=== PATIENT | male | born 1950 | race Caucasian/White ===

== ENCOUNTER → 2016-12-27 | Outpatient (CLI) | payer OTHER ==
[~2016-12-27] MED LIST: ASPI81TA28 PO; CLOP1TAB15 PO; COLC0.6T54 PO; ENAL5TAB83 PO; LPT40 PO; SIMV20TA2 PO
[2016-12-27 13:42] LABS: ALT/SGPT 29 U/L (12-78); BLOOD UREA NITROGEN 17 mg/dl (7-18); BUN/CREATININE RATIO 19.8 (10-20); CALCIUM 9.3 mg/dl (8.5-10.1); CARBON DIOXIDE 28 mmol/L (21-32); CHLORIDE 105 mmol/L (98-107); CHOLESTEROL 132 mg/dl (0-200); CREATININE 0.85 mg/dl (0.60-1.40); GLUCOSE 92 mg/dl (70-99); POTASSIUM 4.1 mmol/L (3.5-5.1); SODIUM 142 mmol/L (136-145); TRIGLYCERIDES 109 mg/dl (0-150); VERY LOW DENSITY LIPOPROT CALC 22 mg/dl
[2016-12-27 13:49] LABS: CHOLESTEROL/HDL RATIO 2.1; HDL CHOLESTEROL 63 mg/dl; PROSTATE SPECIFIC ANTIGEN 0.272 ng/ml (0.000-4.000); URIC ACID 6.7 mg/dl (2.6-7.2)
== END | disposition home or self-care (01) ==
LOC: C.LABMFLN 12:15
PROVIDERS: ATTEND Family Medicine
DX: M77.10 Lateral epicondylitis, unspecified elbow (principal); E78.5 Hyperlipidemia, unspecified; Z12.5 Encounter for screening for malignant neoplasm of prostate

== ENCOUNTER 2017-01-04 00:56 | Emergency (ER) | payer OTHER ==
[~2017-01-04] VITALS: Ht 182.9 cm; Wt 110.0 kg
[~2017-01-04 00:56] MED LIST changes: -COLC0.6T54 PO; -LPT40 PO
[2017-01-04 01:10] VITALS: Ht 182.9 cm; Wt 110.0 kg
--- NOTE | 2017-01-04 01:13 | EMERGENCY ROOM VISIT NOTE ---
History Report prepared by Rosiibkavon: Elijah Mahmood Under the Supervision of: Conchis WhiteO. First contact with patient: 01:04 Chief Complaint: CARDIAC ASSESSMENT Stated Complaint: PALPATATIONS,NOT FEELING WELL,PAIN IN LFT SHOULDER History of Present Illness The patient is a 66 year old male who presents to the Emergency Room with complaints of intermittent chest "pressure" beginning two weeks ago. He states that the pain is occasionally present in his left shoulder. He states he had an episode of confusion today as well. The patient states that he took aspirin following the episode which improved his symptoms. He also complains of shortness of breath. He denies any dizziness. The patient has a history of a heart attack occurring two years ago and states that his current symptoms feel similar. He has two cardiac stents in place. Source of History: patient Onset: two weeks ago Position: chest Quality: pressure Timing: intermittent Modifying Factors (Relieving): other (aspirin) Associated Symptoms: + SOB Note: The patient denies any dizziness. He also complains of occasional pain in his left shoulder. Review of Systems See HPI for pertinent positives and negatives. A total of ten systems were reviewed and were otherwise negative. Past Medical & Surgical Medical Problems: (1) CAD (coronary artery disease) (2) Gout (3) NSTEMI (non-ST elevated myocardial infarction) Surgical Problems: (1) No significant past surgical history (2) Stented coronary artery Family History No pertinent family history stated. Social History Smoking Status: Former Smoker Alcohol Use: occasionally Marital Status: Occupation Status: employed Current/Historical Medications Scheduled Atorvastatin (Atorvastatin Calcium), 40 MG PO DAILY Clopidogrel (Plavix), 75 MG PO QAM Colchicine (Colchicine), 0.6 MG PO BID Allergies Coded Allergies: No Known Allergies (Unverified , 01/04/17) Physical Exam Vital Signs Date Time Temp Pulse Resp B/P Pulse Ox O2 Delivery O2 Flow Rate FiO2 01/04/17 04:00 59 16 140/95 95 Room Air 01/04/17 03:00 63 15 158/95 95 Room Air 01/04/17 01:45 95 Room Air 01/04/17 01:30 74 21 134/86 94 Room Air 01/04/17 01:14 72 01/04/17 01:14 96 Room Air 01/04/17 01:10 74 15 178/114 97 Room Air Physical Exam GENERAL: Awake, alert, well-appearing, in no distress HENT: Normocephalic, atraumatic. Oropharynx unremarkable. EYES: Normal conjunctiva. Sclera non-icteric. NECK: Supple. No nuchal rigidity. FROM. No JVD. RESPIRATORY: Clear to auscultation. CARDIAC: Regular rate, normal rhythm. Extremities warm and well perfused. Pulses equal. ABDOMEN: Soft, non-distended. No tenderness to palpation. No rebound or guarding. No masses. RECTAL: Deferred. MUSCULOSKELETAL: Chest examination reveals no tenderness. The back is symmetrical on inspection without obvious abnormality. There is no CVA tenderness to palpation. No joint edema. LOWER EXTREMITIES: Calves are equal size bilaterally and non-tender. No edema. No discoloration. NEURO: Normal sensorium. No sensory or motor deficits noted. SKIN: No rash or jaundice noted. Medical Decision & Procedures ER Provider Diagnostic Interpretation: One View Chest X-ray interpreted by me: Negative for infiltrate. Normal mediastinum. No pneumothorax. Laboratory Results 01/04/17 01:20 Red Blood Count 4.72, Mean Corpuscular Volume 87.9, Mean Corpuscular Hemoglobin 30.9, Mean Corpuscular Hemoglobin Concent 35.2, Mean Platelet Volume 9.3, Neutrophils (%) (Auto) 47.2, Lymphocytes (%) (Auto) 38.9, Monocytes (%) (Auto) 10.2, Eosinophils (%) (Auto) 3.4, Basophils (%) (Auto) 0.1, Neutrophils # (Auto ) 4.19, Lymphocytes # (Auto) 3.46, Monocytes # (Auto) 0.91, Eosinophils # (Auto ) 0.30, Basophils # (Auto) 0.01 01/04/17 01:20 Test 01/04/17 01:20 01/04/17 03:32 White Blood Count 8.89 K/uL (4.8-10.8) Red Blood Count 4.72 M/uL (4.7-6.1) Hemoglobin 14.6 g/dL (14.0-18.0) Hematocrit 41.5 % (42-52) Mean Corpuscular Volume 87.9 fL (80-100) Mean Corpuscular Hemoglobin 30.9 pg (25-34) Mean Corpuscular Hemoglobin Concent 35.2 g/dl (32-36) Platelet Count 292 K/uL (130-400) Mean Platelet Volume 9.3 fL (7.4-10.4) Neutrophils (%) (Auto) 47.2 % Lymphocytes (%) (Auto) 38.9 % Monocytes (%) (Auto) 10.2 % Eosinophils (%) (Auto) 3.4 % Basophils (%) (Auto) 0.1 % Neutrophils # (Auto) 4.19 K/uL (1.4-6.5) Lymphocytes # (Auto) 3.46 K/uL (1.2-3.4) Monocytes # (Auto) 0.91 K/uL (0.11-0.59) Eosinophils # (Auto) 0.30 K/uL (0-0.5) Basophils # (Auto) 0.01 K/uL (0-0.2) RDW Standard Deviation 41.0 fL (36.4-46.3) RDW Coefficient of Variation 12.7 % (11.5-14.5) Immature Granulocyte % (Auto) 0.2 % Immature Granulocyte # (Auto) 0.02 K/uL (0.00-0.02) Anion Gap 9.0 mmol/L (3-11) Est Creatinine Clear Calc Drug Dose 94.3 ml/min Estimated GFR () 91.1 Estimated GFR (Non- 78.6 BUN/Creatinine Ratio 20.0 (10-20) Calcium Level 9.1 mg/dl (8.5-10.1) Total Bilirubin 0.5 mg/dl (0.2-1) Direct Bilirubin < 0.1 mg/dl (0-0.2) Aspartate Amino Transf (AST/SGOT) 23 U/L (15-37) Alanine Aminotransferase (ALT/SGPT) 33 U/L (12-78) Alkaline Phosphatase 69 U/L (45-117) Total Protein 7.9 gm/dl (6.4-8.2) Albumin 4.3 gm/dl (3.4-5.0) Lipase 122 U/L (73-393) Bedside Troponin I 0.000 ng/ml (0-0.045) Laboratory results reviewed by me ECG Indication: chest pain Rate (beats per minute): 71 Rhythm: normal sinus Findings: no acute ischemic change, no ectopy ED Course 0105: The patient was evaluated in room B7. A complete history and physical exam was performed. 0356: I reevaluated the patient. He is resting in no distress. He is smiling and watching TV. The patient denies any chest pain, dizziness, SOB, or palpations. Discussed results and discharge instructions: he verbalized understanding and agreement. The patient is ready for discharge. Medical decision making, angina or unstable angina acute coronary syndrome acute HI anxiety palpitations noncardiac chest pain. Patient's symptoms do not suggest acute coronary syndrome despite the fact that he said prior cardiac history. He has no current chest pain throughout her emergency department evaluation. Patient's first troponin is 0 and his second troponin at 2 hours is 0 as well. Recheck of the patient is resting in no distress with no cardiac dysrhythmia he is watching television without any distress. I discussed the workup and the patient patient will need follow-up with his physical damage appraiser if any further symptoms persist. I currently doubt acute coronary syndrome thoracic aortic dissection or acute myocardial infarction Medical Decision Differential diagnosis: Etiologies such as cardiac ischemia, aortic dissection, pulmonary embolism, pneumonia, pneumothorax, musculoskeletal, infections, pericarditis, myocarditis , esophageal rupture, gastrointestinal, as well as others were entertained. Impression Primary Impression: Chest pain Scribe Attestation The scribe's documentation has been prepared under my direction and personally reviewed by me in its entirety. I confirm that the note above accurately reflects all work, treatment, procedures, and medical decision making performed by me. Departure Information Dispostion Home / Self-Care Referrals Zay Dumont M.D. (PCP) Patient Instructions ED Chest Pain Atypical Unkn Cause, My [facility] [address] Additional Instructions Follow-up with your physical damage appraiser this week return for any chest pain palpitations dizziness or any concerns Problem Qualifiers Primary Impression: Chest pain Chest pain type: unspecified Qualified Codes: R07.9 - Chest pain, unspecified
[2017-01-04 01:14] VITALS: O2SAT 96
[2017-01-04] MEDS ORDERED: LPT40 PO (01:56)
[2017-01-04] MEDS ORDERED: COLC0.6T54 PO (01:56)
[2017-01-04 02:24] LABS: BASO % 0.1 %; BASO ABS # 0.01 K/uL (0-0.2); COMPLETE YES; EOS % 3.4 %; HEMATOCRIT 41.5 % (42-52); IG% 0.2 %; LYMPH % 38.9 %; LYMPH ABS # 3.46 K/uL (1.2-3.4); MEAN CELL VOLUME 87.9 fL (80-100); MEAN CORPUSCULAR HEMOGLOBIN 30.9 pg (25-34); MEAN CORPUSCULAR HGB CONC 35.2 g/dl (32-36); MEAN PLATELET VOLUME 9.3 fL (7.4-10.4); MONO % 10.2 %; NEUT % 47.2 %; PLATELET COUNT 292 K/uL (130-400); RED BLOOD COUNT 4.72 M/uL (4.7-6.1); WHITE BLOOD COUNT 8.89 K/uL (4.8-10.8)
[2017-01-04 02:36] LABS: ALT/SGPT 33 U/L (12-78); AST/SGOT 23 U/L (15-37); BLOOD UREA NITROGEN 20 mg/dl (7-18); CALCIUM 9.1 mg/dl (8.5-10.1); CARBON DIOXIDE 29 mmol/L (21-32); CHLORIDE 104 mmol/L (98-107); GLUCOSE 88 mg/dl (70-99); POTASSIUM 3.5 mmol/L (3.5-5.1); SODIUM 142 mmol/L (136-145)
[2017-01-04 02:38] LABS: ALKALINE PHOSPHATASE 69 U/L (45-117)
[2017-01-04 04:21] VITALS: BP 145/96; PULSE 69; O2SAT 96
--- NOTE | 2017-01-04 06:21 | DIAGNOSTIC IMAGING REPORT ---
CHEST ONE VIEW PORTABLE CLINICAL HISTORY: CHEST PAIN pain. Dyspnea. COMPARISON STUDY: 10/09/2014 FINDINGS: The bones soft tissues and hemidiaphragms are normal. The cardiomediastinal silhouette is normal. The lungs are clear. The pulmonary vasculature is normal. IMPRESSION: Negative chest. Electronically signed by: Saul Keen M.D. 01/04/2017 6:20 AM Dictated Date/Time: 01/04/2017 6:19 AM
== END 2017-01-04 04:21 | disposition home or self-care (01) ==
LOC: C.EDB 01:02
DX: R07.9 Chest pain, unspecified (principal); R06.02 Shortness of breath; I25.2 Old myocardial infarction; I25.10 Atherosclerotic heart disease of native coronary artery without angina pectoris; M10.9 Gout, unspecified; Z79.899 Other long term (current) drug therapy; Z79.02 Long term (current) use of antithrombotics/antiplatelets; Z95.5 Presence of coronary angioplasty implant and graft; Z87.891 Personal history of nicotine dependence

== ENCOUNTER → 2017-01-13 | Outpatient (CLI) | payer OTHER ==
[~2017-01-13] MED LIST changes: -ASPI81TA28 PO; +COLC0.6T54 PO; -ENAL5TAB83 PO; +LPT40 PO; -SIMV20TA2 PO
--- NOTE | 2017-01-13 19:27 | DIAGNOSTIC IMAGING REPORT ---
MRI OF THE RIGHT ELBOW WITHOUT IV CONTRAST CLINICAL HISTORY: Chronic elbow pain. Loose body. COMPARISON STUDY: No priors. TECHNIQUE: MRI of the right elbow is performed using various T1 and T2-weighted sequences in the axial, sagittal, and coronal planes. IV contrast was not administered for this examination. The examination is severely compromised by motion artifact. Note that interpretation is suboptimal without plain film correlate. FINDINGS: Normal marrow signal intensity is preserved throughout the visualized bony structures. There is no MRI evidence of fracture. An elbow joint effusion is identified. A 6 mm loose body is questioned lateral to the olecranon process on axial image #15. The ulnar collateral ligament appears intact. The radial collateral alignment appears torn. There is also high-grade partial-thickness tearing at the insertion of the common extensor tendon with overlying soft tissue edema. The common flexor tendon appears intact. The biceps tendon is intact, as is the triceps tendon at its insertion. The articular cartilage is difficult to assess due to motion artifact. There is likely thinning of the articular cartilage of the capitellum. Mild spurring is suggested along the lateral joint space. The regional musculature is normal in bulk and signal intensity. IMPRESSION: 1. Severely motion degraded examination. 2. Joint effusion. A 6 mm loose body is questioned as above. 3. There is tearing of the radial collateral ligament as well as high-grade partial-thickness tearing of the common extensor tendon at the humeral insertion. 4. The ulnar collateral ligament and the common flexor tendons are grossly intact. Dictated: 01/13/2017 6:53 PM Transcribed: 01/13/2017 7:26 PM [email or web address] Electronically signed by: Steven Madden M.D. 01/14/2017 12:47 PM Dictated Date/Time: 01/13/2017 6:53 PM
== END | disposition home or self-care (01) ==
LOC: C.MRI 17:28
PROVIDERS: ATTEND Family Medicine
DX: M19.029 Primary osteoarthritis, unspecified elbow (principal); M24.021 Loose body in right elbow; S53.431A Radial collateral ligament sprain of right elbow, initial encounter; X58.XXXA Exposure to other specified factors, initial encounter

== ENCOUNTER → 2017-02-08 | Outpatient (CLI) | payer OTHER ==
--- NOTE | 2017-02-08 17:34 | MYOCARDIAL PERFUSION SCAN ---
TIME: 1657 hours. ORDERING PHYSICIAN: Dr. Bell with physician dermatology physician assistant Gaby Hwang. PRIMARY CARE PHYSICIAN: Zay Dumont MD PROCEDURES: 1. Myocardial perfusion study performed in multiple views/images. 2. Exercise stress ECG as per James protocol. INDICATIONS: 1. CAD. 2. Angina pectoris. CONSENT: Informed written consent was obtained. EXERCISE STRESS ECG: Baseline ECG demonstrated sinus rhythm at 60 beats per minute. Normal ECG. Exercise ECG did not demonstrate any significant ST changes. No arrhythmia. No chest pain reported. Exercise was terminated due to fatigue. Rare PVCs noted. Appropriate blood pressure response to exercise. Peak heart rate was 150 beats per minute representing 96% maximum predicted heart rate. Resting blood pressure was 140/78 mmHg. Maximum blood pressure was 176/76 mmHg. He exercised into stage III of the standard James protocol for a total of 6 minutes and 34 seconds, representing 8.7 mets. Fair exercise tolerance. PROCEDURAL DETAILS: For the stress portion of the study, 33.2 mCi of technetium-99m Cardiolite was injected intravenously at 1332 on 02/08/2017 at peak stress. Fifteen minutes following the injection, imaging of the heart was performed in multiple projections. For the rest portion of the study, 10.7 mCi of technetium-99m Cardiolite was injection intravenously at 11:30 a.m. on the same day. One hour following injection, imaging of the heart was performed in the same projections. FINDINGS: Rotating raw imaging demonstrated motion artifact in the rest imaging only. There was no significant transient ischemic dilation. Heart size appeared normal. There was no significant lung uptake. Myocardial perfusion demonstrated a large area of mildly reduced uptake in the inferior, inferoseptal, and anterolateral de oliveira from base to distal left ventricle. This defect appeared fixed without significant reversibility. Wall motion demonstrated mild global hypokinesis. LV systolic function appeared mildly reduced with a calculated ejection fraction of 42%. IMPRESSION: 1. Negative exercise myocardial perfusion study for ischemia at 96% maximum predicted heart rate. 2. Large fixed defect involving the inferior, inferoseptal, and inferolateral de oliveira from base to distal left ventricle could represent prior infarct versus attenuation artifact. There was global hypokinesis involving all visualized wall segments. 3. Negative exercise stress ECG for ischemia at 96% maximum predicted heart rate. 4. No chest pain. 5. Appropriate blood pressure response to exercise. 6. No arrhythmia. 7. Mildly reduced left ventricular systolic function. Calculated ejection fraction 42%. 8. Exercised a total of 6 minutes and 34 seconds as per James protocol.
== END | disposition home or self-care (01) ==
LOC: C.NUCL 11:04
PROVIDERS: ATTEND Physician Assistant
DX: I25.119 Atherosclerotic heart disease of native coronary artery with unspecified angina pectoris (principal)

== ENCOUNTER → 2017-04-04 | Outpatient (CLI) | payer OTHER ==
[2017-04-04 13:35] LABS: HEMATOCRIT 39.4 % (42-52); MEAN CELL VOLUME 88.7 fL (80-100); MEAN CORPUSCULAR HEMOGLOBIN 29.5 pg (25-34); MEAN CORPUSCULAR HGB CONC 33.2 g/dl (32-36); MEAN PLATELET VOLUME 9.3 fL (7.4-10.4); PLATELET COUNT 231 K/uL (130-400); RED BLOOD COUNT 4.44 M/uL (4.7-6.1); WHITE BLOOD COUNT 5.65 K/uL (4.8-10.8)
== END | disposition home or self-care (01) ==
LOC: C.LABMFLN 09:28
PROVIDERS: ATTEND Family Medicine
DX: M10.9 Gout, unspecified (principal); T14.8 Other injury of unspecified body region; X58.XXXA Exposure to other specified factors, initial encounter

== ENCOUNTER → 2017-06-16 | Outpatient (CLI) | payer OTHER | END | disposition home or self-care (01) | LOC: C.LABMFLN 13:23 | PROVIDERS: ATTEND Family Medicine | DX: M10.9 Gout, unspecified (principal) ==

== ENCOUNTER → 2017-12-27 | Outpatient (CLI) | payer OTHER ==
[2017-12-27 12:47] LABS: HEMATOCRIT 43.2 % (42-52); HEMOGLOBIN 14.4 g/dL (14.0-18.0); MEAN CELL VOLUME 87.4 fL (80-100); MEAN CORPUSCULAR HEMOGLOBIN 29.1 pg (25-34); MEAN CORPUSCULAR HGB CONC 33.3 g/dl (32-36); MEAN PLATELET VOLUME 9.5 fL (7.4-10.4); PLATELET COUNT 218 K/uL (130-400); RED CELL DISTRIBUTION WIDTH CV 12.9 % (11.5-14.5); RED CELL DISTRIBUTION WIDTH SD 41.3 fL (36.4-46.3); WHITE BLOOD COUNT 5.65 K/uL (4.8-10.8)
[2017-12-27 13:59] LABS: ALBUMIN 3.9 gm/dl (3.4-5.0); ALT/SGPT 31 U/L (12-78); BLOOD UREA NITROGEN 16 mg/dl (7-18); CALCIUM 8.8 mg/dl (8.5-10.1); CARBON DIOXIDE 30 mmol/L (21-32); CHOLESTEROL 122 mg/dl (0-200); GLUCOSE 89 mg/dl (70-99); POTASSIUM 4.1 mmol/L (3.5-5.1); SODIUM 139 mmol/L (136-145); URIC ACID 7.9 mg/dl (2.6-7.2)
[2017-12-27 14:01] LABS: ALKALINE PHOSPHATASE 64 U/L (45-117); AST/SGOT 24 U/L (15-37); LDL CHOLESTEROL CALCULATED 54 mg/dl; TOTAL PROTEIN 6.9 gm/dl (6.4-8.2)
== END | disposition home or self-care (01) ==
LOC: C.LABMFLN 10:13
PROVIDERS: ATTEND Physician Assistant
DX: M10.9 Gout, unspecified (principal); I25.10 Atherosclerotic heart disease of native coronary artery without angina pectoris

== ENCOUNTER 2020-08-11 13:31 | Inpatient (IN) ==
[2020-08-11] MEDS ORDERED: DEXAMETHASONE SOD INJ 10 MG/ML VIAL IV ONE (14:33)
[2020-08-11] MEDS ORDERED: SODIUM CHLORIDE 0.9% 1000ML 1,000 ML IV ONE (14:33)
[2020-08-11] MEDS ORDERED: ACETAMINOPHEN 1,000 MG/100 ML VIAL IV STA (14:33)
[2020-08-11] MEDS ORDERED: FAMOTIDINE 20MG IV PUSH 20 MG/5 ML SYR IV STA (14:33)
[2020-08-11] MEDS ORDERED: ONDANSETRON INJ 2 MG/ML 2 ML VIAL IV STA (14:33)
[2020-08-11] MEDS ORDERED: guaiFENesin 600 MG TABCR PO STA (14:36)
[2020-08-11] MEDS ORDERED: ALBUTEROL HFA 8 GM INHALER INH ONE (14:36)
--- NOTE | 2020-08-11 15:07 | XRay Report ---
XR chest 1V portable HISTORY: Atypical Chest Pain COMPARISON: Chest 01/04/2017. FINDINGS: No pneumothorax. No pleural effusions. The heart remains top normal in size. No evidence fo r pulmonary edema. There appear to be hazy airspace opacities within the lung bases, left greater mattie n right. This could represent a developing pneumonia. IMPRESSION: Suggestion of a hazy bibasilar airspace opacities which may represent a developing pneumonia such as a viral process. ACT 112: Negative or not required by law. Electronically signed by: Shawn More M.D. 08/11/2020 3:05 PM
[2020-08-11 15:09] LABS: Basophils # (auto) 0.01 K/uL (0-0.2); Basophils % (auto) 0.1 %; Eosinophils # (auto) 0.02 K/uL (0-0.5); Eosinophils % (auto) 0.1 %; Hematocrit (blood only) 40.8 % (42-52); Hemoglobin 13.4 g/dL (14.0-18.0); Immature Granulocytes # (auto) 0.03 K/uL (0.00-0.02); Immature Granulocytes % (auto) 0.2 %; Lymphocytes # (auto) 1.58 K/uL (1.2-3.4); Lymphocytes % (auto) 10.2 %; Mean Corpuscular Hemoglobin 29.6 pg (25-34); Mean Corpuscular Hgb Conc 32.8 g/dL (32-36); Mean Corpuscular Volume 90.3 fL (80-100); Mean Platelet Volume 9.3 fL (7.4-10.4); Monocytes # (auto) 1.09 K/uL (0.11-0.59); Monocytes % (auto) 7.1 %; Neutrophils # (auto) 12.71 K/uL (1.4-6.5); Neutrophils % (auto) 82.3 %; Platelet Count 215 K/uL (130-400); RDW Coefficient of Variation 13.7 % (11.5-14.5); RDW Standard Deviation 45.1 fL (36.4-46.3); Red Blood Count 4.52 M/uL (4.7-6.1); White Blood Count 15.44 K/uL (4.8-10.8)
[2020-08-11 15:21] LABS: Albumin Level 3.5 gm/dl (3.4-5.0); BUN Creatinine Ratio 13.7 (10-20); Calcium 9.3 mg/dl (8.5-10.1); Creatinine Clr Calc Pharmacy 81.4 ml/min; Est GFR (African American) 76.4; Magnesium 2.1 mg/dl (1.8-2.4); Potassium 4.5 mmol/L (3.5-5.1)
--- NOTE | 2020-08-11 15:23 | Emergency Department Note ---
Impression & Plan Pneumonia, Shortness of breath, Elevated troponin, Hypoxia ED Provider Note NAME: MIKO AHMADI AGE: 70 SEX: M ARRIVES VIA: Walk-In INFORMANT: Patient, ED PROVIDER(S): Charan Cobb MD CHIEF COMPLAINT: Flu like sx PLAN: Disposition: Admit MEDICAL DECISION MAKING: The patient is a pleasant 70-year-old gentleman with a past medical history of CAD status post PCI, preserved EF, heart failure hypertension, hyperlipidemia, opiate dependence, former smoker, granulomatous lung disease who presents emergency department with cough, congestion, chest pain, shortness of breath, nausea, vomiting, diarrhea, feverishness, chills and body aches that all developed acutely around 4 AM this morning in the setting of his report of going to an auction over the weekend which was outdoors but did include attendance of 60-100 people and a after libertarian of the same number of people in attendance were no one was wearing masks. Prior to late last night the patient reports feeling healthy and denies any preceding illness. Patient had a telehealth evaluation by his doctor today and was referred to the emergency department. On arrival the patient is uncomfortable but no acute distress, afebrile with stable vital signs. He appears clinically dry. He has a scant intermittent wheeze and is otherwise clear. EKG without overt acute ischemia. X-ray with bibasilar opacities that are suspicious for developing pneumonia particularly in the setting of the patient's constellation of symptoms. WBC 15.4 with neutrophil predominance. There is no lymphopenia at this time. H/H 13.4/40.8 approximate 2 prior values. Chemistry without acidosis. Electrolytes and LFTs unremarkable. The patient's initial troponin was 0.3 with delta 2-hour troponin increased to 0.6. Suspect likely related to demand in the setting of the patient's flulike symptoms and pneumonia. Patient's COVID-19 PCR today was negative. Upon reevaluation the patient did report feeling improved after IV fluid hydration, dexamethasone, albuterol, guaifenesin. However he was noted to have decreased oxygen saturation to 88% on room air where he is not on oxygen normally. Given the patient's presentation with concern for pneumonia with increased troponin reasonable to admit the patient for further management. Will initiate treatment with Levaquin for now following drawing of blood cultures. Lactate 1.1. Procalcitonin 1.16. Patient is agreeable with admission. Case was d/w RADHA Adams PAC, with Dr. Jean-Baptiste, [facility] spitalist who will evaluate the patient for admission. Triage Nursing notes reviewed and agree them. Prior medical records reviewed Vital Signs: reviewed and remarkable for no significant abnormalities Differential diagnosis: Viral syndrome, otitis, pharyngitis, pneumonia, influenza, meningitis, urinary tract infection, sepsis, bacteremia, as well as other pathologies. ER treatment provided: See below. Diagnostics interpreted by me: ECG: Normal sinus rhythm, 86 bpm, no ectopy, no overt ST elevation or depression, QTC 449, QRS 92. Cardiac Monitoring: An order for continuous cardiac monitoring was placed and demonstrated normal sinus rhythm, 86 bpm, no ectopy. Laboratory studies: See below Imaging studies: XR chest 1V portable HISTORY: Atypical Chest Pain COMPARISON: Chest 01/04/2017. FINDINGS: No pneumothorax. No pleural effusions. The heart remains top normal in size. No evidence for pulmonary edema. There appear to be hazy airspace opacities within the lung bases, left greater than right. This could represent a developing pneumonia. IMPRESSION: Suggestion of a hazy bibasilar airspace opacities which may represent a developing pneumonia such as a viral process. Consultation(s): Case was d/w RADHA Adams PAC, with Dr. Jean-Baptiste, [facility] hospitalist will evaluate the patient for admission. HPI: The patient is a pleasant 70-year-old gentleman with a past medical history of CAD status post PCI, preserved EF, heart failure hypertension, hyperlipidemia, opiate dependence, former smoker, granulomatous lung disease who presents emergency department with cough, congestion, chest pain, shortness of breath, nausea, vomiting, diarrhea, feverishness, chills and body aches that all developed acutely around 4 AM this morning in the setting of his report of going to an auction over the weekend which was outdoors but did include attendance of 60-100 people and a after libertarian of the same number of people in attendance were no one was wearing masks. Prior to late last night the patient reports feeling healthy and denies any preceding illness. Patient had a telehealth evaluation by his doctor today and was referred to the emergency department. ROS: See above HPI for pertinent positives & negatives. A total of 10 systems reviewed and were otherwise negative. PAST MEDICAL HISTORY:See Below PAST SURGICAL HISTORY:See Below FAMILY HISTORY:See Below SOCIAL HISTORY:See Below HOME MEDICATIONS:See Below ALLERGIES:See Below VITALS:See Below PHYSICAL EXAMINATION: GENERAL: Awake, alert, fatigued-appearing, in no distress HENT: Normocephalic, atraumatic. Oropharynx with dry mucous membranes and otherwise unremarkable. EYES: Normal conjunctiva. Sclera non-icteric. NECK: Supple. No nuchal rigidity. FROM. No JVD. RESPIRATORY: Scant intermittent wheezes, otherwise clear. CARDIAC: Regular rate, normal rhythm. Extremities warm and well perfused. Pulses equal. ABDOMEN: Soft, non-distended. No tenderness to palpation. No rebound or guarding. No masses. RECTAL: Deferred. MUSCULOSKELETAL: Chest examination reveals no tenderness. The back is symmetrical on inspection without obvious abnormality. There is no CVA tenderness to palpation. No joint edema. LOWER EXTREMITIES: Calves are equal size bilaterally and non-tender. No edema. No discoloration. NEURO: Normal sensorium. No sensory or motor deficits noted. SKIN: No rash or jaundice noted. Charan Cobb MD Past Med/Surg History Medical History ACS (acute coronary syndrome) Benign essential hypertension CAD (coronary artery disease) Chronic GERD Generalized osteoarthritis of multiple sites Gout Hyperlipidemia NSTEMI (non-ST elevated myocardial infarction) (10/04/14) Unstable angina Surgical History Stented coronary artery Social History Smoking Status: Former smoker Tobacco Type: Cigarettes Age Started Using Tobacco: 22; Age Quit Using Tobacco: 64; Second Hand Exposure: No; Hx Alcohol Use: Yes Alcohol type: beer Hx Substance Use: No Preferred Language: [place]guill[place] Communication Ability: Effective Video Conference Specialist Required: No marital status: / Current Living Situation: Alone Feels Safe at Home: Yes Childhood Exposure to Second-Hand Smoke: Yes Seatbelt Use: sometimes Sunscreen Use: No Allergies Allergies Allergy/AdvReac Type Severity Reaction Status Date / Time No Known Allergies Allergy Verified 08/11/20 16:14 Home Meds Home Medications Medication Instructions Recorded Confirmed atorvastatin 40 mg PO QPM 08/11/20 08/11/20 indomethacin 50 mg PO TID PRN 08/11/20 08/11/20 Previous Rx's Medication Instructions Recorded clopidogrel 75 mg tablet 75 mg PO DAILY #90 tab 07/02/19 Results & Data (ED) Vital Signs Vital Signs - 24 hr 08/11/20 13:59 08/11/20 15:48 08/11/20 15:49 Temperature 37.2 C Temperature Source Oral Pulse Rate 99 H 88 Pulse Rate [Apical] 85 Pulse Rhythm Regular Pulse Strength Normal Respiratory Rate 20 20 20 Respiratory Effort / Characteristics Non-Labored Spontaneous Non-Labored Spontaneous Respiratory Depth Normal Normal Respiratory Pattern Regular Regular Blood Pressure 125/72 Blood Pressure [Right Arm] 128/67 Blood Pressure Mean 89 Blood Pressure Mean [Right Arm] 87 Blood Pressure Position Sitting Pulse Oximetry 93 94 93 Oxygen Delivery Method Room Air Room Air Room Air Oxygen Flow Rate Sepsis Recent Fever Within 48 Hours Yes Sepsis New/Unexplained Change in Mental Status N/A Sepsis Action Taken by Nursing No Action Required 08/11/20 17:03 08/11/20 17:44 08/11/20 19:04 Temperature 36.8 C Temperature Source Oral Pulse Rate Pulse Rate [Apical] 84 79 Pulse Rhythm Pulse Strength Respiratory Rate 20 20 Respiratory Effort / Characteristics Non-Labored Spontaneous Non-Labored Spontaneous Respiratory Depth Normal Normal Respiratory Pattern Regular Regular Blood Pressure Blood Pressure [Right Arm] 107/68 130/78 Blood Pressure Mean Blood Pressure Mean [Right Arm] 81 95 Blood Pressure Position Pulse Oximetry 94 94 Oxygen Delivery Method Room Air Room Air Oxygen Flow Rate Sepsis Recent Fever Within 48 Hours Sepsis New/Unexplained Change in Mental Status Sepsis Action Taken by Nursing 08/11/20 21:08 Temperature Temperature Source Pulse Rate Pulse Rate [Apical] 71 Pulse Rhythm Pulse Strength Respiratory Rate 20 Respiratory Effort / Characteristics Non-Labored Spontaneous Respiratory Depth Normal Respiratory Pattern Regular Blood Pressure Blood Pressure [Right Arm] 110/63 Blood Pressure Mean Blood Pressure Mean [Right Arm] 78 Blood Pressure Position Pulse Oximetry 93 Oxygen Delivery Method Nasal Cannula Oxygen Flow Rate 2 Sepsis Recent Fever Within 48 Hours Sepsis New/Unexplained Change in Mental Status Sepsis Action Taken by Nursing Laboratory Data Attestation: I reviewed the patient's lab results. Result diagrams: 08/11/20 14:55 08/11/20 14:55 Lab Results 10/19/20 10/19/20 10/19/20 Range/Units 14:55 14:55 14:55 WBC 15.44 H (4.8-10.8) K/uL RBC 4.52 L (4.7-6.1) M/uL Hgb 13.4 L (14.0-18.0) g/dL Hct 40.8 L (42-52) % MCV 90.3 (80-100) fL MCH 29.6 (25-34) pg MCHC 32.8 (32-36) g/dL RDW Std Deviation 45.1 (36.4-46.3) fL RDW Coeff of Kiersten 13.7 (11.5-14.5) % Plt Count 215 (130-400) K/uL MPV 9.3 (7.4-10.4) fL Immature Gran % (Auto) 0.2 % Neut % (Auto) 82.3 % Lymph % (Auto) 10.2 % Rooks % (Auto) 7.1 % Eos % (Auto) 0.1 % Baso % (Auto) 0.1 % Neut # (Auto) 12.71 H (1.4-6.5) K/uL Lymph # (Auto) 1.58 (1.2-3.4) K/uL Rooks # (Auto) 1.09 H (0.11-0.59) K/uL Eos # (Auto) 0.02 (0-0.5) K/uL Baso # (Auto) 0.01 (0-0.2) K/uL Immature Gran # (Auto) 0.03 H (0.00-0.02) K/uL PT Cancelled INR Cancelled APTT Cancelled PTT Ratio Cancelled Sodium 139 (136-145) mmol/L Potassium 4.5 (3.5-5.1) mmol/L Chloride 104 (98-107) mmol/L Carbon Dioxide 30 (21-32) mmol/L Anion Gap 5.0 (3-11) BUN 16 (7-18) mg/dl Creatinine 1.13 (0.6-1.4) mg/dl Est Cr Clr Drug Dosing 81.4 ml/min Est GFR ( Amer) 76.4 Est GFR (Non-Af Amer) 66.0 BUN/Creatinine Ratio 13.7 (10-20) Glucose 102 H (70-99) mg/dl Lactate (0.4-2.0) mmol/L Calcium 9.3 (8.5-10.1) mg/dl Phosphorus 3.3 (2.5-4.9) mg/dl Magnesium 2.1 (1.8-2.4) mg/dl Total Bilirubin 0.6 (0.2-1) mg/dl AST 23 (15-37) U/L ALT 37 (12-78) U/L Alkaline Phosphatase 58 (45-117) U/L Troponin I 0.386 H* (0-0.045) ng/ml Total Protein 6.8 (6.4-8.2) gm/dl Albumin 3.5 (3.4-5.0) gm/dl Globulin 3.3 (2.5-4.0) gm/dl Albumin/Globulin Ratio 1.1 (0.9-2) Lipase 141 (73-393) U/L Procalcitonin (0-0.5) ng/ml Urine Color Urine Appearance (Clear) Urine pH (4.5-7.5) Ur Specific Clio (1.000-1.030) Urine Protein (Negative) Urine Glucose (UA) (Negative) Urine Ketones (Negative) Urine Blood (Negative) Urine Nitrite (Negative) Urine Bilirubin (Negative) Urine Urobilinogen (Negative) Ur Leukocyte Esterase (Negative) Adenovirus (PCR) (NotDetected) B. pertussis DNA (PCR) (NotDetected) B.parapertussis DNA PCR (NotDetected) C. pneumoniae DNA (PCR) (NotDetected) Coronavirus OC43 (PCR) (NotDetected) Coronavirus HKU1 (PCR) (NotDetected) Coronavirus 229E (PCR) (NotDetected) COVID-19 Eval Order COVID-19 PCR (Negative) Coronavirus NL63 (PCR) (NotDetected) Human Metapneumovir PCR (NotDetected) Influenza Type A (PCR) (NotDetected) Influenza Type B (PCR) (NotDetected) M. pneumoniae (PCR) (NotDetected) Parainfluenza 1 (PCR) (NotDetected) Parainfluenza 2 (PCR) (NotDetected) Parainfluenza 3 (PCR) (NotDetected) Parainfluenza 4 (PCR) (NotDetected) RSV (PCR) (NotDetected) Entero/Rhino (PCR) (NotDetected) 08/11/20 08/11/20 08/11/20 Range/Units 14:55 15:53 15:53 WBC (4.8-10.8) K/uL RBC (4.7-6.1) M/uL Hgb (14.0-18.0) g/dL Hct (42-52) % MCV (80-100) fL MCH (25-34) pg MCHC (32-36) g/dL RDW Std Deviation (36.4-46.3) fL RDW Coeff of Kiersten (11.5-14.5) % Plt Count (130-400) K/uL MPV (7.4-10.4) fL Immature Gran % (Auto) % Neut % (Auto) % Lymph % (Auto) % Rooks % (Auto) % Eos % (Auto) % Baso % (Auto) % Neut # (Auto) (1.4-6.5) K/uL Lymph # (Auto) (1.2-3.4) K/uL Rooks # (Auto) (0.11-0.59) K/uL Eos # (Auto) (0-0.5) K/uL Baso # (Auto) (0-0.2) K/uL Immature Gran # (Auto) (0.00-0.02) K/uL PT INR APTT PTT Ratio Sodium (136-145) mmol/L Potassium (3.5-5.1) mmol/L Chloride (98-107) mmol/L Carbon Dioxide (21-32) mmol/L Anion Gap (3-11) BUN (7-18) mg/dl Creatinine (0.6-1.4) mg/dl Est Cr Clr Drug Dosing ml/min Est GFR ( Amer) Est GFR (Non-Af Amer) BUN/Creatinine Ratio (10-20) Glucose (70-99) mg/dl Lactate (0.4-2.0) mmol/L Calcium (8.5-10.1) mg/dl Phosphorus (2.5-4.9) mg/dl Magnesium (1.8-2.4) mg/dl Total Bilirubin (0.2-1) mg/dl AST (15-37) U/L ALT (12-78) U/L Alkaline Phosphatase (45-117) U/L Troponin I (0-0.045) ng/ml Total Protein (6.4-8.2) gm/dl Albumin (3.4-5.0) gm/dl Globulin (2.5-4.0) gm/dl Albumin/Globulin Ratio (0.9-2) Lipase (73-393) U/L Procalcitonin 1.16 H (0-0.5) ng/ml Urine Color Urine Appearance (Clear) Urine pH (4.5-7.5) Ur Specific Clio (1.000-1.030) Urine Protein (Negative) Urine Glucose (UA) (Negative) Urine Ketones (Negative) Urine Blood (Negative) Urine Nitrite (Negative) Urine Bilirubin (Negative) Urine Urobilinogen (Negative) Ur Leukocyte Esterase (Negative) Adenovirus (PCR) (NotDetected) B. pertussis DNA (PCR) (NotDetected) B.parapertussis DNA PCR (NotDetected) C. pneumoniae DNA (PCR) (NotDetected) Coronavirus OC43 (PCR) (NotDetected) Coronavirus HKU1 (PCR) (NotDetected) Coronavirus 229E (PCR) (NotDetected) COVID-19 Eval Order Covid19 Done at [facility] COVID-19 PCR NEGATIVE (Negative) Coronavirus NL63 (PCR) (NotDetected) Human Metapneumovir PCR (NotDetected) Influenza Type A (PCR) (NotDetected) Influenza Type B (PCR) (NotDetected) M. pneumoniae (PCR) (NotDetected) Parainfluenza 1 (PCR) (NotDetected) Parainfluenza 2 (PCR) (NotDetected) Parainfluenza 3 (PCR) (NotDetected) Parainfluenza 4 (PCR) (NotDetected) RSV (PCR) (NotDetected) Entero/Rhino (PCR) (NotDetected) 08/11/20 08/11/20 08/11/20 Range/Units 17:15 17:53 18:33 WBC (4.8-10.8) K/uL RBC (4.7-6.1) M/uL Hgb (14.0-18.0) g/dL Hct (42-52) % MCV (80-100) fL MCH (25-34) pg MCHC (32-36) g/dL RDW Std Deviation (36.4-46.3) fL RDW Coeff of Kiersten (11.5-14.5) % Plt Count (130-400) K/uL MPV (7.4-10.4) fL Immature Gran % (Auto) % Neut % (Auto) % Lymph % (Auto) % Rooks % (Auto) % Eos % (Auto) % Baso % (Auto) % Neut # (Auto) (1.4-6.5) K/uL Lymph # (Auto) (1.2-3.4) K/uL Rooks # (Auto) (0.11-0.59) K/uL Eos # (Auto) (0-0.5) K/uL Baso # (Auto) (0-0.2) K/uL Immature Gran # (Auto) (0.00-0.02) K/uL PT INR APTT PTT Ratio Sodium (136-145) mmol/L Potassium (3.5-5.1) mmol/L Chloride (98-107) mmol/L Carbon Dioxide (21-32) mmol/L Anion Gap (3-11) BUN (7-18) mg/dl Creatinine (0.6-1.4) mg/dl Est Cr Clr Drug Dosing ml/min Est GFR ( Amer) Est GFR (Non-Af Amer) BUN/Creatinine Ratio (10-20) Glucose (70-99) mg/dl Lactate 1.1 (0.4-2.0) mmol/L Calcium (8.5-10.1) mg/dl Phosphorus (2.5-4.9) mg/dl Magnesium (1.8-2.4) mg/dl Total Bilirubin (0.2-1) mg/dl AST (15-37) U/L ALT (12-78) U/L Alkaline Phosphatase (45-117) U/L Troponin I 0.683 H* (0-0.045) ng/ml Total Protein (6.4-8.2) gm/dl Albumin (3.4-5.0) gm/dl Globulin (2.5-4.0) gm/dl Albumin/Globulin Ratio (0.9-2) Lipase (73-393) U/L Procalcitonin (0-0.5) ng/ml Urine Color Yellow Urine Appearance Clear (Clear) Urine pH 7.5 (4.5-7.5) Ur Specific Clio 1.008 (1.000-1.030) Urine Protein Negative (Negative) Urine Glucose (UA) Negative (Negative) Urine Ketones Negative (Negative) Urine Blood Negative (Negative) Urine Nitrite Negative (Negative) Urine Bilirubin Negative (Negative) Urine Urobilinogen Negative (Negative) Ur Leukocyte Esterase Negative (Negative) Adenovirus (PCR) (NotDetected) B. pertussis DNA (PCR) (NotDetected) B.parapertussis DNA PCR (NotDetected) C. pneumoniae DNA (PCR) (NotDetected) Coronavirus OC43 (PCR) (NotDetected) Coronavirus HKU1 (PCR) (NotDetected) Coronavirus 229E (PCR) (NotDetected) COVID-19 Eval Order COVID-19 PCR (Negative) Coronavirus NL63 (PCR) (NotDetected) Human Metapneumovir PCR (NotDetected) Influenza Type A (PCR) (NotDetected) Influenza Type B (PCR) (NotDetected) M. pneumoniae (PCR) (NotDetected) Parainfluenza 1 (PCR) (NotDetected) Parainfluenza 2 (PCR) (NotDetected) Parainfluenza 3 (PCR) (NotDetected) Parainfluenza 4 (PCR) (NotDetected) RSV (PCR) (NotDetected) Entero/Rhino (PCR) (NotDetected) 08/11/20 Range/Units 18:42 WBC (4.8-10.8) K/uL RBC (4.7-6.1) M/uL Hgb (14.0-18.0) g/dL Hct (42-52) % MCV (80-100) fL MCH (25-34) pg MCHC (32-36) g/dL RDW Std Deviation (36.4-46.3) fL RDW Coeff of Kiersten (11.5-14.5) % Plt Count (130-400) K/uL MPV (7.4-10.4) fL Immature Gran % (Auto) % Neut % (Auto) % Lymph % (Auto) % Rooks % (Auto) % Eos % (Auto) % Baso % (Auto) % Neut # (Auto) (1.4-6.5) K/uL Lymph # (Auto) (1.2-3.4) K/uL Rooks # (Auto) (0.11-0.59) K/uL Eos # (Auto) (0-0.5) K/uL Baso # (Auto) (0-0.2) K/uL Immature Gran # (Auto) (0.00-0.02) K/uL PT INR APTT PTT Ratio Sodium (136-145) mmol/L Potassium (3.5-5.1) mmol/L Chloride (98-107) mmol/L Carbon Dioxide (21-32) mmol/L Anion Gap (3-11) BUN (7-18) mg/dl Creatinine (0.6-1.4) mg/dl Est Cr Clr Drug Dosing ml/min Est GFR ( Amer) Est GFR (Non-Af Amer) BUN/Creatinine Ratio (10-20) Glucose (70-99) mg/dl Lactate (0.4-2.0) mmol/L Calcium (8.5-10.1) mg/dl Phosphorus (2.5-4.9) mg/dl Magnesium (1.8-2.4) mg/dl Total Bilirubin (0.2-1) mg/dl AST (15-37) U/L ALT (12-78) U/L Alkaline Phosphatase (45-117) U/L Troponin I (0-0.045) ng/ml Total Protein (6.4-8.2) gm/dl Albumin (3.4-5.0) gm/dl Globulin (2.5-4.0) gm/dl Albumin/Globulin Ratio (0.9-2) Lipase (73-393) U/L Procalcitonin (0-0.5) ng/ml Urine Color Urine Appearance (Clear) Urine pH (4.5-7.5) Ur Specific Clio (1.000-1.030) Urine Protein (Negative) Urine Glucose (UA) (Negative) Urine Ketones (Negative) Urine Blood (Negative) Urine Nitrite (Negative) Urine Bilirubin (Negative) Urine Urobilinogen (Negative) Ur Leukocyte Esterase (Negative) Adenovirus (PCR) Not Detected (NotDetected) B. pertussis DNA (PCR) Not Detected (NotDetected) B.parapertussis DNA PCR Not Detected (NotDetected) C. pneumoniae DNA (PCR) Not Detected (NotDetected) Coronavirus OC43 (PCR) Not Detected (NotDetected) Coronavirus HKU1 (PCR) Not Detected (NotDetected) Coronavirus 229E (PCR) Not Detected (NotDetected) COVID-19 Eval Order COVID-19 PCR Not Detected (Negative) Coronavirus NL63 (PCR) Not Detected (NotDetected) Human Metapneumovir PCR Not Detected (NotDetected) Influenza Type A (PCR) Not Detected (NotDetected) Influenza Type B (PCR) Not Detected (NotDetected) M. pneumoniae (PCR) Not Detected (NotDetected) Parainfluenza 1 (PCR) Not Detected (NotDetected) Parainfluenza 2 (PCR) Not Detected (NotDetected) Parainfluenza 3 (PCR) Not Detected (NotDetected) Parainfluenza 4 (PCR) Not Detected (NotDetected) RSV (PCR) Not Detected (NotDetected) Entero/Rhino (PCR) Not Detected (NotDetected) Administered Medications Discontinued Medications Albuterol (Albuterol Hfa 8 Gm Inhaler) 2 puffs INH NOW ONE Stop: 08/11/20 14:37 Last Admin: 08/11/20 15:55 Dose: 2 puffs Documented by: [id number] Dexamethasone (Dexamethasone Sod Inj 10 Mg/Ml Vial) 10 mg IV NOW ONE Stop: 08/11/20 14:34 Last Admin: 08/11/20 15:53 Dose: 10 mg Documented by: [id number] Guaifenesin (Guaifenesin 600 Mg Tabcr) 600 mg PO NOW STA Stop: 08/11/20 14:37 Last Admin: 08/11/20 15:51 Dose: 600 mg Documented by: [id number] Sodium Chloride (Nss 1000ml) 1,000 mls @ 999 mls/hr IV .[id number] ONE Stop: 08/11/20 15:33 Last Infusion: 08/11/20 17:02 Dose: 0 mls/hr Documented by: [id number] Admin: 08/11/20 15:50 Dose: 999 mls/hr Documented by: [id number] Acetaminophen (Ofirmev) 1,000 mg in 100 mls @ 400 mls/hr IV NOW STA Stop: 08/11/20 14:47 Last Infusion: 08/11/20 16:13 Dose: 0 mls/hr Documented by: [id number] Admin: 08/11/20 15:54 Dose: 400 mls/hr Documented by: [id number] Famotidine (Pepcid 20mg Iv Push) 20 mg in 5 mls @ 2.5 mls/min IV NOW STA Stop: 08/11/20 14:34 Last Admin: 08/11/20 15:53 Dose: 2.5 mls/min Documented by: [id number] Levofloxacin/Dextrose (Levaquin/D5w) 750 mg in 150 mls @ 100 mls/hr IV NOW STA Stop: 08/11/20 19:26 Last Infusion: 08/11/20 20:13 Dose: 0 mls/hr Documented by: [id number] Admin: 08/11/20 18:40 Dose: 100 mls/hr Documented by: [id number] Ondansetron HCl (Ondansetron Inj 2 Mg/Ml 2 Ml Vial) 4 mg IV NOW STA Stop: 08/11/20 14:34 Last Admin: 08/11/20 15:52 Dose: 4 mg Documented by: [id number] Discharge Plan Visit Data Chief Complaint: Fever Stated Complaint: CHILLS,DIARRHEA,VOMITING,FEVER ED Provider: Charan Cobb Discharge Problem: Pneumonia, Shortness of breath, Elevated troponin, Hypoxia Forms Stand Alone Forms: [facility] Prescriptions Prescriptions: No Action clopidogrel 75 mg tablet 75 mg PO DAILY Qty: 90 RF: 3 atorvastatin 40 mg tablet 40 mg PO QPM RF: 0 indomethacin 50 mg capsule 50 mg PO TID PRN (Reason: GOUT) RF: 0 Discharge Problem: Pneumonia Qualifiers: Pneumonia type: due to unspecified organism Laterality: bilateral Lung location: lower lobe of lung Qualified Code(s): J18.9 - Pneumonia, unspecified organism
[2020-08-11 15:34] LABS: Albumin Globulin Ratio 1.1 (0.9-2); Bilirubin,Total 0.6 mg/dl (0.2-1); Globulin 3.3 gm/dl (2.5-4.0); Phosphorus 3.3 mg/dl (2.5-4.9); Total Protein 6.8 gm/dl (6.4-8.2); Troponin I 0.386 ng/ml (0-0.045)
--- NOTE | 2020-08-11 16:35 | Electrocardiogram Report ---
Test Reason : Blood Pressure : / mmHG Vent. Rate : 086 BPM Atrial Rate : 086 BPM P-R Int : 148 ms QRS Dur : 092 ms QT Int : 376 ms P-R-T Axes : 055 028 050 degrees QTc Int : 449 ms Normal sinus rhythm Normal ECG When compared with ECG of 13-OCT-2019 01:13, ST depression in Anterolateral leads no longer present Confirmed by Miguel Schmitz ([id number]) on 08/11/2020 4:35:02 PM Referred By: Zay Dumont Confirmed By:Miguel Schmitz
[2020-08-11] MEDS ORDERED: levoFLOXacin/D5W 750 MG/150 ML BAG IV STA (17:57)
[2020-08-11 18:16] LABS: Appearance Urine Clear (Clear); Bilirubin Urine Negative (Negative); Blood Urine Negative (Negative); Color Urine Yellow; Glucose Urine UA Negative (Negative); Ketones Urine Negative (Negative); Leukocyte Esterase Urine Negative (Negative); Nitrite Urine Negative (Negative); Protein Urine Negative (Negative); Specific Gravity Urine 1.008 (1.000-1.030); Urobilinogen Urine Negative (Negative); pH Urine 7.5 (4.5-7.5)
--- NOTE | 2020-08-11 19:48 | History & Physical Report ---
Date of Service August 11, 2020 Assessment & Plan (1) Pneumonia: Mr. Csatañeda is a 70 yo male with h/o CAD (s/p cath and 2 HERMNIIA placement in 2013), HFpEF, HTN, HLD, previous opiate dependence (not currently on any opiates) who presented to [facility] ED on 08/11/2020 after onset of chest pain, feve r/chills, cough, shortness of breath, body aches, N/V at ~0400 today. Pneumonia - symptoms of cough, subjective fever/chills and bilateral lower lung field crackles - CXR showing bibasilar opacities and WBC elevated with neutrophilic dominance - COVID-19 negative, BioFire goodson-negative (including Mycoplasma), Influenza A/B PCR negative - Influenza A/B antibodies pending - at this point mixed picture with CXR more indicative of viral etiology but CBC and goodson-negative viral testing more indicative of bacterial etiology - already received Levofloxacin 750 mg IV in the ED, would cover bacterial PNA for the next 24 hours - would consider continuing treatment for bacterial PNA - currently hemodynamically stable and satting well on room air - continue to follow clinically - follow CBC daily Elevated Troponin - EKG without ST/T changes - No chest pain since early this AM - Troponin up trending from .386 (1455) --> .683 (1715) - given lack of chest pain in the setting of likely dehydration, PNA, and h/o CAD/heart dx, suspect demand ischemia more than true NSTEMI - ordered serial Troponin for 2200 08/11 and in am - NPO for now - if continues to up trend, consider Heparin gtt and keep NPO for possible cath tomorrow - Cardiology consulted for tomorrow AM - TTE ordered for tomorrow AM - EKG for PRN chest pain and EKG for tomorrow AM ordered - SL Nitro ordered for PRN chest pain HFpEF - Last Echo in 2013 showed EF 50% and sever hypokinesis/akinesis of inferior and inferolateral segments - 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 - Cardiology consult, TTE as mentioned above CAD - with Cath and 2 LCx HERMINIA in 2013 - already on Plavix and Lipitor, will continue both of these at home doses - given previous history and current elevated Troponin, will start SHOBHA-I starting tomorrow AM (Lisinopril 5 mg PO QAM) - would consider addition of BB if patient tolerates SHOBHA-I - will defer addition of Aspirin for now given h/o easy bruising with DAPT - Cards consult as mentioned above - TTE ordered as above HLD - continue Lipitor 40 mg PO daily as mentioned above' - ordered fasting lipid panel Chronic GERD - uncontrolled, daily sx at home with 8-10 tums needed per day - will start Protonix 40 mg PO daily in the hospital - would consider PPI trial as outpatient given severity of sx HTN - history of such - SHOBHA-I as mentioned above Opiate Dependence - cautious use of opiates PRN for pain FEN/GI: NPO for possible cath pending serial Trops DVT Prophylaxis: Plavix 75 mg PO daily, took this morning Code Status: Full Code Disposition: Med/Surg with Tele (2) Shortness of breath: (3) Elevated troponin: (4) Hypoxia: (5) Chronic GERD: (6) Generalized osteoarthritis of multiple sites: (7) Hyperlipidemia: (8) Benign essential hypertension: (9) (HFpEF) heart failure with preserved ejection fraction: History of Present Illness Chief Complaint: fever/chills, cough, shortness of breath Primary Care Provider: Zay Dumont MD Mr. Castañeda is a 70 yo male with h/o CAD (s/p cath and 2 HERMINIA placement in 2013), HFpEF, HTN, HLD, previous opiate dependence (not currently on any opiates) who presented to [facility] ED on 08/11/2020 after onset of fever/chills, cough, shortness of breath, body aches, N/V at ~0400. Also experienced severe, non-radiated substernal chest pressure that resolved after ~1 hour without medication or intervention. Chest pain, and all other symptoms, occurred while patient inactive (lying in bed). Besides chest pain, other symptoms persisted and patient subsequently came to ED. Reports that he attended an auction in [place] on 08/09 where 50-100 people were present in close proximity to each other and not wearing masks. However, denies known COVID-19 positive contacts. Was asymptomatic until acute onset of above-mentioned symptoms this morning, without previous chest pain, palpitations, orthopnea, exertional dysnpea, PND, N/V. In ED, CXR with bibasilar opacities and elevated WBC 15 with neutrophilic dominance. Also had elevated Troponin uptrending from .386 (1455) --> .683 (1715) without chest pain. Also intermittently hypoxic to high 80s and persistent shortness of breath requiring Dexamethasone 10 mg x1 and Albuterol nebs x1 in ED. Also received NSS 1L. Received IV Pepcid x1 and IV Zofran x1 for nausea. After acute interventions, patient reports great improvement overall - now only mildly fatigued without N/V, SOB, and no chest pain since early this AM. Afebrile since arrival at ED. PMHx: CAD: two stents in left circ in 2013, was initially on DAPT with Aspirin/Plavix but had to drop Aspirin because of easy bruising - taking Plavix 75 mg daily since then HFpEF: Last Echo in 2013 showed EF 50% and sever hypokinesis/akinesis of inferior and inferolateral segments GERD: regurgitation, indigestion, postprandial nausea for years with need for 8- 10 tums per day - does not take H2 blockers or PPIs HLD: takes Lipitor 40 mg PO daily FamHx: Father had MT at age 61 Brother had MT at age 32 SurgHx: Cath/stents in 2013 SocialHx: Lives alone with 5 dogs in [place], [place]. 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 Proficient at ADLs/iADLs. 70 pack year tobacco smoking history - quit in 2013. Drinks 12-15 beers per week. No other drug use. Allergies: NKDA Allergies Allergy/AdvReac Type Severity Reaction Status Date / Time No Known Allergies Allergy Verified 08/11/20 16:14 Home Medications Home Medications Medication Instructions Recorded Confirmed Type clopidogrel 75 mg tablet 75 mg PO DAILY #90 tab 07/02/19 08/11/20 Rx atorvastatin 40 mg PO QPM 08/11/20 08/11/20 History indomethacin 50 mg PO TID PRN 08/11/20 08/11/20 History Past Med/Surg History Medical History ACS (acute coronary syndrome) Benign essential hypertension CAD (coronary artery disease) Chronic GERD Generalized osteoarthritis of multiple sites Gout Hyperlipidemia NSTEMI (non-ST elevated myocardial infarction) (10/04/14) Unstable angina Surgical History Stented coronary artery Social History Smoking Status: Former smoker Tobacco Type: Cigarettes Age Started Using Tobacco: 22; Age Quit Using Tobacco: 64; Second Hand Exposure: No; Hx Alcohol Use: Yes Alcohol type: beer Hx Substance Use: No Preferred Language: Bengali Communication Ability: Effective Conventional Underwriter Required: No marital status: / Current Living Situation: Alone Feels Safe at Home: Yes Childhood Exposure to Second-Hand Smoke: Yes Seatbelt Use: sometimes Sunscreen Use: No Review of Systems Constitutional: + fever and + chills Eyes: no worsening vision Ear, Nose, Mouth, Throat: no hearing loss Respiratory: + cough and + dyspnea Cardiovascular: + chest pain; no dyspnea on exertion, no orthopnea, no paroxysmal nocturnal dyspnea, no palpitations, no syncope, no edema and no calf pain Gastrointestinal: + heartburn, + nausea and + vomiting; no abdominal pain, no hematemesis, no diarrhea/loose stools and no blood in stools Genitourinary: no dysuria Integumentary: no rash Neurologic: no falls and no syncope Physical Exam Constitutional: WD/WN, vitals as above Eyes: PERRL, conjunctivae normal, anicteric sclerae ENMT: external ear and nose normal, oropharynx normal Respiratory: normal respiratory effort and + cough; no respiratory distress, no labored breathing, no retractions and does not use accessory muscles Auscultation: + diminished lung sounds and + crackles (bilateral lower lung montoya) Cardiovascular: RRR, no murmur, no edema Chest (Breasts): normal inspection/palpation of breasts Gastrointestinal (Abdomen): normal bowel sounds, soft, nontender, no hepatosplenomegaly Skin: no rashes, warm and dry Psychiatric: A+Ox3, euthymic affect Results & Data Results & Data ([facility]) Vital Signs (Past 12 Hours) Vital Signs Temp Pulse Pulse Resp BP BP Pulse Ox 08/11/20 19:04 79 20 130/78 94 08/11/20 17:44 36.8 C 08/11/20 17:03 84 20 107/68 94 08/11/20 15:49 88 20 93 08/11/20 15:48 85 20 128/67 94 08/11/20 13:59 37.2 C 99 H 20 125/72 93 Code Status & VTE Plan VTE Prophylaxis Plan VTE Prophylaxis will be ordered: Yes Supervising Physician Co-Signing Physician Notes Patient was seen and examined independently I discussed the case with Cresencio Houston MD I reviewed pertinent past medical social family history and also the plan of care and agree with the plan of care. Patient has chest discomfort reminiscent of previous coronary disease however has some mild chest x-ray changes possibly consistent with a pneumonic infection with negative viral screening. Did receive levofloxacin in the ER may consider continuing this treatment however only based if his cardiac issues are negative. Symptoms may be more of an anginal equivalent Emerged part and he was stable it of some basilar crackles more on the left troponins are currently pending Evaluate trending of troponins with cardiology consultation and further cardiac evaluation in the morning Any exceptions will be noted below Resident Activity Tracking Resident Involvement: Resident Care Provided Care Provided: Adult Hospital Medicine
[2020-08-11 19:57] LABS: Adenovirus PCR Not Detected (NotDetected); Bordetella parapertussis PCR Not Detected (NotDetected); Bordetella pertussis PCR Not Detected (NotDetected); Chlamydia pneumoniae PCR Not Detected (NotDetected); Coronavirus 229E PCR Not Detected (NotDetected); Coronavirus CoV-2 (COVID19)PCR Not Detected (NotDetected); Coronavirus HKU1 PCR Not Detected (NotDetected); Coronavirus NL63 PCR Not Detected (NotDetected); Coronavirus OC43PCR Not Detected (NotDetected); Human Metapneumovirus PCR Not Detected (NotDetected); Influenza A PCR Not Detected (NotDetected); Influenza B PCR Not Detected (NotDetected); Mycoplasma pneumoniae PCR Not Detected (NotDetected); Parainfluenza Virus 1 PCR Not Detected (NotDetected); Parainfluenza Virus 2 PCR Not Detected (NotDetected); Parainfluenza Virus 3 PCR Not Detected (NotDetected); Parainfluenza Virus 4 PCR Not Detected (NotDetected); Respiratory Syncytial VirusPCR Not Detected (NotDetected); Rhinovirus/Enterovirus PCR Not Detected (NotDetected)
--- NOTE | 2020-08-11 20:35 | History & Physical Report ---
Date of Service August 11, 2020 Assessment & Plan (1) Pneumonia: Mr. Castañeda is a 70 yo male with h/o CAD (s/p cath and 2 HERMINIA placement in 2013), HFpEF, HTN, HLD, previous opiate dependence (not currently on any opiates) who presented to [facility] ED on 08/11/2020 after onset of chest pain, feve r/chills, cough, shortness of breath, body aches, N/V at ~0400 today. Pneumonia - symptoms of cough, subjective fever/chills and bilateral lower lung field crackles - CXR showing bibasilar opacities and WBC elevated with neutrophilic dominance - COVID-19 negative, BioFire goodson-negative (including Mycoplasma), Influenza A/B PCR negative - Influenza A/B antibodies pending - at this point mixed picture with CXR more indicative of viral etiology but CBC and goodson-negative viral testing more indicative of bacterial etiology - already received Levofloxacin 750 mg IV in the ED, would cover bacterial PNA for the next 24 hours - would consider continuing treatment for bacterial PNA - currently hemodynamically stable and satting well on room air - continue to follow clinically - follow CBC daily Elevated Troponin - EKG without ST/T changes - No chest pain since early this AM - Troponin up trending from .386 (1455) --> .683 (1715) - given lack of chest pain in the setting of likely dehydration, PNA, and h/o CAD/heart dx, suspect demand ischemia more than true NSTEMI - ordered serial Troponin for 2200 08/11 and in am - NPO for now - if continues to up trend, consider Heparin gtt and keep NPO for possible cath tomorrow - Cardiology consulted for tomorrow AM - TTE ordered for tomorrow AM - EKG for PRN chest pain and EKG for tomorrow AM ordered - SL Nitro ordered for PRN chest pain HFpEF - Last Echo in 2013 showed EF 50% and sever hypokinesis/akinesis of inferior and inferolateral segments - 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 - Cardiology consult, TTE as mentioned above CAD - with Cath and 2 LCx HERMINIA in 2013 - already on Plavix and Lipitor, will continue both of these at home doses - given previous history and current elevated Troponin, will start SHOBHA-I starting tomorrow AM (Lisinopril 5 mg PO QAM) - would consider addition of BB if patient tolerates SHOBHA-I - will defer addition of Aspirin for now given h/o easy bruising with DAPT - Cards consult as mentioned above - TTE ordered as above HLD - continue Lipitor 40 mg PO daily as mentioned above' - ordered fasting lipid panel Chronic GERD - uncontrolled, daily sx at home with 8-10 tums needed per day - will start Protonix 40 mg PO daily in the hospital - would consider PPI trial as outpatient given severity of sx HTN - history of such - SHOBHA-I as mentioned above Opiate Dependence - cautious use of opiates PRN for pain FEN/GI: NPO for possible cath pending serial Trops DVT Prophylaxis: Plavix 75 mg PO daily, took this morning Code Status: Full Code Disposition: Med/Surg with Tele (2) Shortness of breath: (3) Elevated troponin: (4) Hypoxia: (5) Chronic GERD: (6) Generalized osteoarthritis of multiple sites: (7) Hyperlipidemia: (8) Benign essential hypertension: (9) (HFpEF) heart failure with preserved ejection fraction: Admission and Anticipated Discharge Date Admission Date: Patient was admitted with pulmonary symptoms but also chest pain. His history of coronary artery disease. He had a stent in 2013. He remains on Plavix therapy and atorvastatin. His initially elevated troponin levels and a mild chest x-ray change. He has negative Covid and bio fire with exception of influenza. He is given Levaquin in the ER. Will have troponins trended. Based upon her troponin trend we may consider performing a stress test versus cardiac consultation given his previous NSTEMI. Maintained on no additional antibiotics pending results of his influenza testing. He was recently had an event in the public. 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 Patient has no history of coronary disease status post circumflex stenting in 2013. He feels this chest discomfort did remind him of his previous cardiac symptoms. Patient does have some cold-like symptoms with chills shortness of breath body aches and mild nausea vomiting appetite suppression. He was tested negative for Covid in the emergency department. This is some very minor chest x-ray changes in bibasilar lobes. Currently pending bio fire and influenza testing. He was given levofloxacin therapy in the emergency department. He does have minor elevation of troponins x2. No recurrence of his chest discomfort since this morning. Allergies Allergy/AdvReac Type Severity Reaction Status Date / Time No Known Allergies Allergy Verified 08/11/20 16:14 Home Medications Home Medications Medication Instructions Recorded Confirmed Type clopidogrel 75 mg tablet 75 mg PO DAILY #90 tab 07/02/19 08/11/20 Rx atorvastatin 40 mg PO QPM 08/11/20 08/11/20 History indomethacin 50 mg PO TID PRN 08/11/20 08/11/20 History Past Med/Surg History Medical History ACS (acute coronary syndrome) Benign essential hypertension CAD (coronary artery disease) Chronic GERD Generalized osteoarthritis of multiple sites Gout Hyperlipidemia NSTEMI (non-ST elevated myocardial infarction) (10/04/14) Unstable angina Surgical History Stented coronary artery Social History Smoking Status: Former smoker Tobacco Type: Cigarettes Age Started Using Tobacco: 22; Age Quit Using Tobacco: 64; Second Hand Exposure: No; Hx Alcohol Use: Yes Alcohol type: beer Hx Substance Use: No Preferred Language: Greek Communication Ability: Effective Yacht Rigger Required: No marital status: / Current Living Situation: Alone Feels Safe at Home: Yes Childhood Exposure to Second-Hand Smoke: Yes Seatbelt Use: sometimes Sunscreen Use: No Review of Systems Review of Systems: Mild distress and fatigue, mostly shortness of breath and mild coughing no headache, blurry or double vision no speech or swallowing issues no chest pain, pressure or palpitations Feels baseline shortness of breath having nonproductive cough but no wheezing no abdominal pain, nausea or vomiting, diarrhea or constipation no dysuria, hematuria or frequency no focal joint pain or swelling no back pain, CVA tenderness or radicular pain no bruising, bleeding or rashes no focal signs of weakness or numbness or altered sensation no complaints of anxiety or depression. Physical Exam Physical Exam: The patient appeared well nourished and normally developed. Vital signs as documented. Head exam is normocephalic atraumatic no scleral icterus Neck is without JVD, thyromegaly, or carotid bruits. Lungs are basilar rales left greater than right Cardiac exam, Rhythm is regular.. No murmurs, rubs or gallops. Abdominal exam reveals normal bowel sounds, soft non tender, no masses Extremities are nonedematous and both pedal pulses are present Neurologic exam is alert and oriented, no focal loss of strength or sensation Skin is without bruises or rashes Psychologically is without concerns for anxiety or depression. Results & Data Results & Data ([facility]) Vital Signs (Past 12 Hours) Vital Signs Temp Pulse Pulse Resp BP BP Pulse Ox 08/11/20 19:04 79 20 130/78 94 08/11/20 17:44 98.2 F 08/11/20 17:03 84 20 107/68 94 08/11/20 15:49 88 20 93 08/11/20 15:48 85 20 128/67 94 08/11/20 13:59 99.0 F 99 H 20 125/72 93 Chest x-ray 08/11/2020 suggestion of hazy bibasilar airspace opacities EKG shows sinus rhythm no acute ST or T wave changes Code Status & VTE Plan VTE Prophylaxis Plan VTE Prophylaxis will be ordered: Yes PG Care Time/CCT Total # of Minutes Spent Total Time Spent with Patient: Total time spent is greater than 50% in coordination of care (as documented) at patient's floor/unit and/or counseling patient: Coding Level of Care Code 03776 OBS Care - Level 3 Diagnoses Pneumonia J18.9 Shortness of breath R06.02 Elevated troponin R77.8 Hypoxia R09.02 Chronic GERD K21.9 Generalized osteoarthritis of multiple sites M15.9 Hyperlipidemia E78.5 Benign essential hypertension I10 (HFpEF) heart failure with preserved ejection fraction I50.30
[2020-08-11] MEDS ORDERED: INDOMETHACIN 25 MG CAP PO PRN (23:24)
[2020-08-11] MEDS ORDERED: NITROGLYCERIN SL 0.4 MG/TAB TAB SL PRN (23:24)
[2020-08-12] MEDS: ATORVASTATIN 40 MG TAB PO SCH ×2 (00:11→20:06)
--- NOTE | 2020-08-12 00:15 | Communication Note ---
Date of Service: August 12, 2020 Per nursing, pt admits to drinking 3-4 alcoholic drinks "every other night". Consider further evaluation of drinking Hx and monitoring for signs of withd nick.
[2020-08-12 07:44] LABS: Troponin I 0.258 ng/ml (0-0.045)
--- NOTE | 2020-08-12 08:35 | Electrocardiogram Report ---
Test Reason : Blood Pressure : / mmHG Vent. Rate : 068 BPM Atrial Rate : 068 BPM P-R Int : 144 ms QRS Dur : 096 ms QT Int : 432 ms P-R-T Axes : 038 044 050 degrees QTc Int : 459 ms Normal sinus rhythm Normal ECG When compared with ECG of 11-AUG-2020 15:46, No significant change was found Confirmed by Miguel Schmitz ([id number]) on 08/12/2020 8:34:50 AM Referred By: Zay Dumont Confirmed By:Miguel Schmitz
[2020-08-12] MEDS: lisinopril 5 MG TAB PO SCH (10:21)
[2020-08-12] MEDS: PANTOprazole 40 MG TAB PO SCH (10:21)
[2020-08-12] MEDS: CLOPIDOGREL BISULFATE 75 MG TAB PO SCH (10:22)
--- NOTE | 2020-08-12 10:46 | XCELERA ---
[id number]
--- NOTE | 2020-08-12 11:18 | Cardiology Consultation ---
Date of Consultation August 12, 2020 Assessment & Plan (1) Elevated troponin: Suspect demand ischemia given presence of hypoxia with transient mild tachycardia in patient with known underlying coronary artery disease. Given lack of ongoing chest discomfort, presence of normal serial ECGs, and downward trend of troponin curve would manage conservatively by treating his underlying infectious process and optimizing hemodynamics. No evidence for acute coronary syndrome, no need for heparin. Continue clopidogrel and statin. (2) Chest pain: Uncertain whether transient angina secondary to supply/demand mismatch or secondary to his underlying pulmonary process, however no evidence of acute coronary syndrome at this point. Management as above. Obtain ECG if any recurrent chest pain. (3) Pneumonia: (4) Hypoxia: (5) CAD (coronary artery disease): Echocardiogram shows chronic inferior wall motion abnormality with preserved systolic function. ECG shows no evidence of ischemia, he has no ongoing anginal type symptoms, and he is on appropriate cardiac medications. (6) (HFpEF) heart failure with preserved ejection fraction: Volume status appears appropriately currently. He is not on routine diuretics. Monitor as he receives IV fluids. History of Present Illness Reason for Consultation: Elevated troponin Requesting Physician: Cresencio Houston MD Attending Physician: Mady Barrera MD History of Present Illness 70-year-old man with CAD (HERMINIA x2 circumflex 2013, no remaining occlusive disease), diastolic congestive heart failure, hypertension, and other medical problems who was admitted 08/11/2020 with apparent pneumonia, noted to have mildly elevated troponin. He did note some chest pain initially yesterday, although this was in the context of fever, chills, anorexia, nausea with vomiting, dyspnea, and myalgias. His Covid and bio fire testing was negative, he does have mild leukocytosis. He was moderately hypoxic in the emergency department (pulse ox in the 80s) and treated with beta agonist nebulizers. He has not had any further chest discomfort since yesterday and his ECGs were unremarkable. Troponin did show a mild peak and decay (0.68 as highest value). At the time of my evaluation this morning, he was comfortable with no chest discomfort or dyspnea (on supplemental oxygen).. Allergies Allergy/AdvReac Type Severity Reaction Status Date / Time No Known Allergies Allergy Verified 08/11/20 16:14 Home Medications Home Medications Medication Instructions Recorded Confirmed Type clopidogrel 75 mg tablet 75 mg PO DAILY #90 tab 07/02/19 08/11/20 Rx atorvastatin 40 mg PO QPM 08/11/20 08/11/20 History indomethacin 50 mg PO TID PRN 08/11/20 08/11/20 History Patient History Medical History ACS (acute coronary syndrome) Benign essential hypertension CAD (coronary artery disease) Chronic GERD Generalized osteoarthritis of multiple sites Gout Hyperlipidemia NSTEMI (non-ST elevated myocardial infarction) (10/04/14) Unstable angina Surgical History Stented coronary artery (2013) STEMI 2 HERMINIA Cx Social History Smoking Status: Former smoker Tobacco Type: Cigarettes Age Started Using Tobacco: 22; Age Quit Using Tobacco: 64; Smoking End Date: 6 years ago; Second Hand Exposure: No; Hx Alcohol Use: Yes Alcohol type: beer Hx Substance Use: No Preferred Language: German Communication Ability: Effective Twist Tester Required: No Beliefs That Will Affect Care: None marital status: / Current Living Situation: Alone Other Information That Helps Us Care for You: No Feels Safe at Home: Yes Childhood Exposure to Second-Hand Smoke: Yes Seatbelt Use: sometimes Sunscreen Use: No Assistive Devices: Denture - Upper, Denture - Lower and Glasses Review of Systems Constitutional: + fever, + chills and + fatigue; no weight loss and no weight gain Eyes: no problem reported Ear, Nose, Mouth, Throat: no problem reported Respiratory: + cough and + dyspnea Cardiovascular: as per Subjective / HPI Gastrointestinal: + nausea and + vomiting; no abdominal pain and no change in stools Musculoskeletal: no myalgia Integumentary: no rash and no new lesions Neurologic: no falls and no syncope Psychiatric: no problem reported Hematologic / Lymphatic: no easy bleeding and no easy bruising Physical Exam Physical Exam: Normal habitus white male in no acute distress. Afebrile. Normotensive. Pulse 82 and regular, respirations 18. Skin: no ecchymoses or generalized lesions. HEENT: unremarkable. Neck: no JVD or carotid bruits. Lungs: Moderately diminished breath sounds with scattered rhonchi. No obvious wheezing. Cardiac: regular rhythm and no murmur or gallop. Abdomen benign. Extremities: no edema, pulses brisk. Neurologic: normal affect, nonfocal. Results & Data ([facility]) Laboratory Results He received 15.4, hemoglobin 13.4, normal platelet count. Normal electrolytes, BUN 16, creatinine 1.13. Troponin initially 0.3 rising to a peak of 0.6 before dropping on the 2 subseq uent values. Diagnostic Findings ECG on admission showed sinus rhythm at 86 bpm and was unremarkable. Compared to ECG, previously noted anterolateral ST depression had resolved. ECG this morning also showed sinus rhythm and no ST deviation, unremarkable. Echocardiogram today showed normal LV size with low normal systolic function (EF equal 50-55%) with a moderate sized area of severe inferobasal hypokinesis, all other de oliveira move normally. Compared with 2014 study, no change in wall motion or other findings. Chest x-ray showed bibasilar opacities. PG Care Time/CCT Total # of Minutes Spent Total Time Spent with Patient: Total time spent is greater than 50% in coordination of care (as documented) at patient's floor/unit and/or counseling patient: Coding Level of Care Code 85050 Initial Inpt Care Lvl 3 Diagnoses Elevated troponin R77.8 Chest pain R07.9 Pneumonia J18.9 Laterality: bilateral Lung location: lower lobe of lung Pneumonia type: due to unspecified organism Hypoxia R09.02 CAD (coronary artery disease) I25.10 (HFpEF) heart failure with preserved ejection fraction I50.30 (1) Pneumonia Laterality: bilateral Lung location: lower lobe of lung Pneumonia type: due to unspecified organism Qualified Code(s): J18.9 - Pneumonia, unspecified organism
[2020-08-12] MEDS ORDERED: NEOSTIGMINE METHYLSULFATE 1 MG/ML 10ML VIAL ONE ×2 (15:02→16:55)
[2020-08-12] MEDS ORDERED: MIDAZOLAM HCL 1 MG/ML 2ML VIAL ONE (15:02)
[2020-08-12] MEDS ORDERED: GLYCOPYRROLATE 0.2 MG/ML VIAL ONE (15:02)
[2020-08-12] MEDS ORDERED: ROCURONIUM BROMIDE 10 MG/ML 5 ML VIAL IV ONE (15:02)
[2020-08-12] MEDS ORDERED: fentaNYL citrate 100 MCG/2 ML VIAL ONE ×2 (15:02)
[2020-08-12] MEDS ORDERED: ONDANSETRON INJ 2 MG/ML 2 ML VIAL ONE (15:02)
[2020-08-12] MEDS ORDERED: LIDOCAINE HCL 2% 2 ML VIAL/AMP(20MG/ML) INFIL ONE (15:02)
[2020-08-12] MEDS ORDERED: DEXAMETHASONE SOD INJ 4 MG/ML VIAL ONE (15:02)
[2020-08-12] MEDS ORDERED: PROPOFOL IV EMULSION 10 MG/ML 20 ML VIAL IV ONE (15:02)
[2020-08-12] MEDS ORDERED: ALBUTEROL 0.083% NEBU SOLN 3 ML VIAL NEB PRN (15:49)
[2020-08-12] MEDS ORDERED: levoFLOXacin/D5W 750 MG/150 ML BAG IV SCH (18:00)
--- NOTE | 2020-08-12 22:04 | Hospitalist Progress Note ---
Date of Service August 12, 2020 Assessment & Plan (1) Pneumonia: Mr. Castañeda is a 70 yo male with h/o CAD (s/p cath and 2 HERMINIA placement in 2013), HFpEF, HTN, HLD, previous opiate dependence (not currently on any opiates) who presented to [facility] ED on 08/11/2020 after onset of chest pain, feve r/chills, cough, shortness of breath, body aches, N/V at ~0400 on the day of admission. Found to have bilateral hazy opacities in the bases on chest x-ray and an elevated procalcitonin. Pneumonia with acute respiratory failure with hypoxia - symptoms of cough, subjective fever/chills and bilateral lower lung field crackles - CXR showing bibasilar opacities and WBC elevated with neutrophilic dominance - COVID-19 negative, BioFire goodson-negative (including Mycoplasma), Influenza A/B PCR negative -Could be aspiration pneumonia from vomiting -Continue levofloxacin x7-day course -Follow CBC, BMP Follow chest x-ray to resolution Add on albuterol inhaler as needed as he is wheezing and history of smoking -Now weaned off oxygen-Will need to step prior to discharge Elevated Troponin-mildly elevated and back down, likely myocardial demand ischemia Appreciate cardiology consultation - EKG without ischemic changes - No chest pain since admission -Echocardiogram with preserved EF, a moderate sized severe inferobasal wall hypokinesis which was present previously HFpEF - Last Echo in 2013 showed EF 50% and severe hypokinesis/akinesis of inferior and inferolateral segments Volume status acceptable CAD - with Cath and 2 LCx HERMINIA in 2013 -Continue Plavix and Lipitor - Cards consult as mentioned above HLD - continue Lipitor 40 mg PO daily as mentioned above Chronic GERD - uncontrolled, daily sx at home with 8-10 tums needed per day - will start Protonix 40 mg PO daily in the hospital - would consider PPI trial as outpatient given severity of sx HTN - history of such - SHOBHA-I started here for improved control Opiate Dependence - cautious use of opiates PRN for pain FEN/GI: Tolerating regular diet DVT Prophylaxis: Plavix 75 mg PO daily, ambulation, encouraged ambulation around the dunbar Code Status: Full Code Disposition: Med/Surg with Tele (2) Shortness of breath: (3) Elevated troponin: (4) Hypoxia: (5) Chronic GERD: (6) Generalized osteoarthritis of multiple sites: (7) Hyperlipidemia: (8) Benign essential hypertension: (9) (HFpEF) heart failure with preserved ejection fraction: Admission and Anticipated Discharge Date Admission Date: August 11, 2020 Subjective Patient feeling much better. Denies cough. No further chest pain. Not short of breath but has not moved much except to the bathroom and back. Denies any further nausea or vomiting. No diarrhea. He is tolerating regular diet. He does not feel like he is quite ready to go home but is worried about his dogs at home. However, he decided to stay. Telemetry with normal sinus rhythm rate 70s to 80s Review of Systems Review of Systems: All systems reviewed & are unremarkable except as noted in HPI & below Physical Exam Constitutional: WD/WN, vitals as above Eyes: + anicteric sclerae Neck: trachea midline, no thyromegaly Respiratory: normal respiratory effort Auscultation: + crackles (at bases) and + wheezes (expiratory, bilat) Cardiovascular: RRR, no murmur, no edema Chest (Breasts): Chest: normal inspection of chest Gastrointestinal (Abdomen): normal bowel sounds, soft, nontender, no hepatosplenomegaly Musculoskeletal: Extremities: extremities normal to inspection; no cyanosis and no clubbing Skin: no rashes, warm and dry Neurologic: moves all extremities and awake; no focal motor deficits Psychiatric: A+Ox3, euthymic affect Lymphatic: no lymphedema Results & Data Results & Data ([facility]) Vital Signs (Past 12 Hours) Vital Signs Temp Pulse Pulse Pulse Resp BP BP 08/12/20 19:42 36.6 C 83 16 99/57 L 08/12/20 15:55 77 16 08/12/20 15:09 36.6 C 74 18 123/71 08/12/20 14:20 76 08/12/20 11:22 36.5 C 82 18 128/75 Pulse Ox 08/12/20 19:42 91 08/12/20 15:55 93 08/12/20 15:09 93 08/12/20 14:20 08/12/20 11:22 92 Laboratory Results Labs reviewed PG Care Time/CCT Total # of Minutes Spent Total Time Spent with Patient: Total time spent is greater than 50% in coordination of care (as documented) at patient's floor/unit and/or counseling patient: Coding Level of Care Code 35158 Subseq Hosp Care Lvl 2 Diagnoses Pneumonia J18.9 Laterality: bilateral Lung location: lower lobe of lung Pneumonia type: due to unspecified organism Shortness of breath R06.02 Elevated troponin R77.8 Hypoxia R09.02 Chronic GERD K21.9 Generalized osteoarthritis of multiple sites M15.9 Hyperlipidemia E78.5 Benign essential hypertension I10 (HFpEF) heart failure with preserved ejection fraction I50.30 (1) Pneumonia Laterality: bilateral Lung location: lower lobe of lung Pneumonia type: due to unspecified organism Qualified Code(s): J18.9 - Pneumonia, unspecified organism
[2020-08-13 07:20] LABS: Basophils # (auto) 0.01 K/uL (0-0.2); Basophils % (auto) 0.1 %; Eosinophils # (auto) 0.11 K/uL (0-0.5); Eosinophils % (auto) 1.1 %; Hematocrit (blood only) 36.7 % (42-52); Hemoglobin 12.4 g/dL (14.0-18.0); Immature Granulocytes # (auto) 0.01 K/uL (0.00-0.02); Immature Granulocytes % (auto) 0.1 %; Lymphocytes # (auto) 2.29 K/uL (1.2-3.4); Lymphocytes % (auto) 23.7 %; Mean Corpuscular Hemoglobin 30.2 pg (25-34); Mean Corpuscular Hgb Conc 33.8 g/dL (32-36); Mean Corpuscular Volume 89.5 fL (80-100); Mean Platelet Volume 9.4 fL (7.4-10.4); Monocytes # (auto) 0.75 K/uL (0.11-0.59); Monocytes % (auto) 7.8 %; Neutrophils # (auto) 6.48 K/uL (1.4-6.5); Neutrophils % (auto) 67.2 %; Platelet Count 195 K/uL (130-400); RDW Coefficient of Variation 13.6 % (11.5-14.5); RDW Standard Deviation 44.5 fL (36.4-46.3); White Blood Count 9.65 K/uL (4.8-10.8)
[2020-08-13] MEDS: CLOPIDOGREL BISULFATE 75 MG TAB PO SCH (07:52)
[2020-08-13] MEDS: PANTOprazole 40 MG TAB PO SCH (07:52)
[2020-08-13] MEDS: lisinopril 5 MG TAB PO SCH (07:52)
[2020-08-13 07:57] LABS: BUN Creatinine Ratio 22.6 (10-20); Creatinine Clr Calc Pharmacy 88.8 ml/min; Est GFR (African American) 85.5; Est GFR (Non-African American) 73.8; Potassium 3.8 mmol/L (3.5-5.1)
--- NOTE | 2020-08-13 10:47 | Cardiology Progress Note ---
Date of Service August 13, 2020 Assessment & Plan (1) Elevated troponin: As noted, suspect demand ischemia. No evidence of ongoing myocardial ischemia or acute coronary event. Continue clopidogrel and statin. (2) CAD (coronary artery disease): (3) (HFpEF) heart failure with preserved ejection fraction: Volume status appears appropriate currently without the need for diuretic. (4) Pneumonia: Clinically improving. Admission and Anticipated Discharge Date Admission Date: August 12, 2020 Subjective Uneventful night. He is feeling much better. No chest pain since admission. Denies any dyspnea currently. Physical Exam Physical Exam: Normal habitus white male in no acute distress. Afebrile. Normotensive. Pulse 82 and regular, respirations 18. Skin: no ecchymoses or generalized lesions. HEENT: unremarkable. Neck: no JVD or carotid bruits. Lungs: Moderately diminished breath sounds with occasional rhonchi. No obvious wheezing. Cardiac: regular rhythm and no murmur or gallop. Abdomen benign. Extremities: no edema, pulses brisk. Neurologic: normal affect, nonfocal. Results & Data ([facility] [place]) Laboratory Results White count normalized at 9.65, hemoglobin 12.4, normal platelet count. Normal electrolytes, BUN 23, creatinine 1.03. Troponin peaked at 0.6 on 08/11, declined thereafter. PG Care Time/CCT Total # of Minutes Spent Total Time Spent with Patient: Total time spent is greater than 50% in coordin ation of care (as documented) at patient's floor/unit and/or counseling patient: Coding Level of Care Code 32535 Subseq Hosp Care Lvl 2 Diagnoses Elevated troponin R77.8 CAD (coronary artery disease) I25.10 (HFpEF) heart failure with preserved ejection fraction I50.30 Pneumonia J18.9 Laterality: bilateral Lung location: lower lobe of lung Pneumonia type: due to unspecified organism (1) Pneumonia Laterality: bilateral Lung location: lower lobe of lung Pneumonia type: due to unspecified organism Qualified Code(s): J18.9 - Pneumonia, unspecified organism
--- NOTE | 2020-08-13 13:32 | Discharge Summary ---
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 Patient has no history of coronary disease status post circumflex stenting in 2013. He feels this chest discomfort did remind him of his previous cardiac symptoms. Patient does have some cold- like symptoms with chills shortness of breath body aches and mild nausea vomiting appetite suppression. He was tested negative for Covid in the emergency department. This is some very minor chest x-ray changes in bibasilar lobes. Currently pending bio fire and influenza testing. He was given levofloxacin therapy in the emergency department. He does have minor elevation of troponins x2. No recurrence of his chest discomfort since this morning. Principal Diagnosis Community-acquired pneumonia, acute respiratory failure with hypoxia, myocardial demand ischemia Discharge Exam Constitutional WD/WN, vitals as above Eyes + anicteric sclerae Neck trachea midline, no thyromegaly Respiratory normal respiratory effort, lungs clear to auscultation Auscultation: + wheezes (Except very faint expiratory wheeze) Cardiovascular RRR, no murmur, no edema Chest (Breasts) Chest: normal inspection of chest Gastrointestinal (Abdomen) normal bowel sounds, soft, nontender, no hepatosplenomegaly Musculoskeletal Extremities: extremities normal to inspection; no cyanosis and no clubbing Skin no rashes, warm and dry Neurologic moves all extremities and awake; no focal motor deficits Psychiatric A+Ox3, euthymic affect Lymphatic no lymphedema Discharge Data Allergies Allergy/AdvReac Type Severity Reaction Status Date / Time No Known Allergies Allergy Verified 08/11/20 16:14 Consultations 08/11/20 18:21 ED Decision to Admit Stat 08/11/20 23:24 Consult Cardiology Routine Procedures Performed Echocardiogram Ordered Studies Chest x-ray Hospital Course (1) Pneumonia: Mr. Castañeda is a 70 yo male with h/o CAD (s/p cath and 2 HERMINIA placement in 2013), HFpEF, HTN, HLD, previous opiate dependence (not currently on any opiates) who presented to [facility] ED on 08/11/2020 after onset of chest pain, fever/chills, cough, shortness of breath, body aches, N/V at ~0400 on the day of admission. Found to have bilateral hazy opacities in the bases on chest x-ray and an elevated procalcitonin. Pneumonia with acute respiratory failure with hypoxia - symptoms of cough, subjective fever/chills and bilateral lower lung field crackles - CXR showing bibasilar opacities and WBC elevated with neutrophilic predominance - COVID-19 negative, BioFire goodson-negative (including Mycoplasma), Influenza A/B PCR negative -Seems that the pneumonia is what started his chills which then prompted the nausea vomiting diarrhea -Continue levofloxacin x7-day course-needs 5 more days after discharge Leukocytosis is improved, procalcitonin is decreasing back towards normal Follow chest x-ray to resolution as an outpatient in 3 to 4 weeks Add on albuterol inhaler as needed as he is wheezing and history of smoking -Now weaned off oxygen-respiratory therapy walked him for 6-minute walk test and he passed, was with pulse ox 93-95% on room air Elevated Troponin-mildly elevated and back down, likely myocardial demand ischemia Appreciate cardiology consultation - EKG without ischemic changes - No chest pain since admission -Echocardiogram with preserved EF, a moderate sized severe inferobasal wall hypokinesis which was present previously -Added on lisinopril He reports trouble with what sounds like beta-blockers in the past causing hypotension HFpEF - Last Echo in 2013 showed EF 50% and severe hypokinesis/akinesis of inferior and inferolateral segments Volume status acceptable CAD - with Cath and 2 LCx HERMINIA in 2013 -Continue Plavix and Lipitor - Cards consult as mentioned above HLD - continue Lipitor 40 mg PO daily as mentioned above Chronic GERD - uncontrolled, daily sx at home with 8-10 tums needed per day - will start Protonix 40 mg PO daily in the hospital and continue after discharge -Follow-up with PCP and/or GI as an outpatient for EGD if not improving -Recommended cutting back on alcohol and coffee intake HTN - history of such - SHOBHA-I started here for improved control Opiate Dependence No ongoing issues FEN/GI: Tolerating regular diet DVT Prophylaxis: Plavix 75 mg PO daily, ambulation, encouraged ambulation around the dunbar Code Status: Full Code Disposition: Stable for discharge home (2) Shortness of breath: (3) Elevated troponin: (4) Hypoxia: (5) Chronic GERD: (6) Generalized osteoarthritis of multiple sites: (7) Hyperlipidemia: (8) Benign essential hypertension: (9) (HFpEF) heart failure with preserved ejection fraction: Total Time Total Time Spent Total Time Spent (In Minutes): 35 minutes Total Time Includes: Examination of the Patient, Discharge Planning and Medication Reconciliation Discharge Plan Discharge Items Patient Disposition: Home - Self-Care Reason For Visit: PNEUMONIA, ELEVATE TROPONIN Discharge Diagnosis: Community-acquired bacterial pneumonia, myocardial demand ischemia, acute respiratory failure with hypoxia-resolved Condition on Discharge: Good Activity: Resume your previous activity Non-emergency contact: Primary Care Provider Call non-emergency contact if: you have any medication questions and your symptoms worsen Follow-up/Referrals: Zay Dumont MD [Primary Care Provider] - 08/18/20 1:30 pm (APPT WITH MICA BASS) Diet: Heart Healthy Addtl Attending Provider Instructions: Please finish out the course of antibiotics as prescribed for your pneumonia. You can use the albuterol inhaler as needed for cough or wheezing. You did not need any oxygen on the day of discharge. Please follow-up with your primary care physician as scheduled for you. You will need a chest x-ray in 3 to 4 weeks to ensure that your pneumonia has completely resolved. He also started on a new blood pressure medication that is also good for your heart given your heart disease. It is called lisinopril. Your blood pressures have been well controlled here and are not too high or too low on this medication. Because of your significant heartburn, your started on Protonix 40 mg once daily. Please take this and follow-up with your primary care physician. Pending Studies at Discharge: Yes Studies:: Final blood cultures-no growth to date Stand-Alone Forms: My [facility] Medications and DC Order Prescriptions: New pantoprazole 40 mg Tablet,Delayed Release (Dr/Ec) 40 mg PO DAILY Qty: 30 RF: 0 lisinopril [Zestril] 5 mg Tablet 5 mg PO QAM Qty: 30 RF: 0 levofloxacin 750 mg tablet 750 mg PO DAILY 5 Days Qty: 5 RF: 0 albuterol sulfate 90 mcg/actuation HFA aerosol inhaler 2 inh inhalation Q4H PRN (Reason: shortness of breath or wheezing) Qty: 18 RF: 0 Continued clopidogrel 75 mg tablet 75 mg PO DAILY Qty: 90 RF: 3 atorvastatin 40 mg tablet 40 mg PO QPM RF: 0 indomethacin 50 mg capsule 50 mg PO TID PRN (Reason: GOUT) RF: 0 Discharge Orders: Discharge Order (Routine); Ordered 08/13/20 Ordered By: Mady Barrera Admission Data Admit Date/Time: 08/12/20 22:04 Attending Provider: Mady Barrera Admit Provider: Osorio Jean-Baptiste Primary Care Provider: Zay Dumont Other Providers: Osorio Jean-Baptiste ; Miguel Schmitz Other Interventions: Discharge Summary Assessment (RN) Last Done: 08/13/20 13:10 Coding Level of Care Code D/C Day Management >30 mins Diagnoses Pneumonia J18.9 Laterality: bilateral Lung location: lower lobe of lung Pneumonia type: due to unspecified organism Shortness of breath R06.02 Elevated troponin R77.8 Hypoxia R09.02 Chronic GERD K21.9 Generalized osteoarthritis of multiple sites M15.9 Hyperlipidemia E78.5 Benign essential hypertension I10 (HFpEF) heart failure with preserved ejection fraction I50.30
[2020-08-18 22:41] LABS: Influenza Type A 1:16 titer (<1:8); Influenza Type B <1:8 titer (<1:8)
--- NOTE | 2020-08-22 13:25 | Coding Query ---
To promote full compliance with coding requirements relating to patient care, provider participation is requested in all cases of sales product specialist uncertainty. Please assist us with the question(s) below: Coding Question(s): The diagnosis below was documented in the 08/12/20 PROGRESS NOTE, then subsequently fell off all further documentation and was not mentioned on the Discharge Summary. Please indicate if it is still a possible diagnosis or ruled out. Physician's Response(s): ASPIRATION PNEUMONIA ( ) Diagnosed and POA ( ) Diagnosed and not POA ( x ) Ruled out ( ) Other (please specify) MTDD
== END 2020-08-13 13:50 | disposition home or self-care (01) | DRG 193 ==
LOC: 2N 13:31 → ED 13:31 → SUATTDRO 20:36 → 2N 23:01

== ENCOUNTER 2022-10-12 21:17 | Observation (INO) ==
[2022-10-12] MEDS ORDERED: SODIUM CHLORIDE 0.9% 1000ML 1,000 ML IV SCH (22:00)
[2022-10-12 22:09] LABS: Basophils # (auto) 0.01 K/uL (0-0.2); Basophils % (auto) 0.2 %; Eosinophils # (auto) 0.01 K/uL (0-0.50); Eosinophils % (auto) 0.2 %; Hematocrit (blood only) 41.4 % (40.1-51.0); Hemoglobin 14.3 g/dl (14.0-18.0); Immature Granulocytes # (auto) 0.01 K/uL (0.00-0.02); Immature Granulocytes % (auto) 0.2 %; Lymphocytes % (auto) 10.1 %; Mean Corpuscular Hemoglobin 30.5 pg (25.0-34.0); Mean Corpuscular Hgb Conc 34.5 g/dL (32.0-36.0); Mean Corpuscular Volume 88.3 fL (80.0-100.0); Mean Platelet Volume 9.4 fL (9.4-12.4); Monocytes # (auto) 0.54 K/uL (0.24-0.82); Monocytes % (auto) 9.1 %; Neutrophils # (auto) 4.77 K/uL (1.4-6.5); Neutrophils % (auto) 80.2 %; Platelet Count 193 K/uL (130-400); RDW Coefficient of Variation 13.7 % (11.5-14.5); RDW Standard Deviation 44.3 fL (36.4-46.3); Red Blood Count 4.69 M/uL (4.63-6.08); White Blood Count 5.94 K/ul (4.8-10.8)
--- NOTE | 2022-10-12 22:24 | XRay Report ---
SINGLE VIEW CHEST CLINICAL HISTORY: Fever. Upper respiratory tract infection. FINDINGS: 2 AP, portable, upright chest radiographs are compared to study dated 08/01/2022. Correlatio n is made with chest CT dated 10/26/2021. The cardiomediastinal silhouette is top normal for projection noting atherosclerotic calcification of the thoracic aorta. Mild emphysema and chronic interstitial thickening similar to previous. Scarring/atelectasis is noted at the lung bases. No airspace consolid ation or large pleural effusion is identified. No pneumothorax is seen. The skeletal structures are o steopenic. The bony thorax is grossly intact. IMPRESSION: Emphysematous change with no acute cardiopulmonary abnormality identified. ACT 112: Negative or not required by law. Electronically signed by: Steven Madden M.D. 10/12/2022 10:23 PM
[2022-10-12 22:30] LABS: Albumin Globulin Ratio 1.5 (0.9-2); Albumin Level 4.4 gm/dl (3.4-5.0); BUN Creatinine Ratio 15.3 (10-20); Bilirubin,Total 0.4 mg/dl (0.2-1.0); Calcium 8.9 mg/dl (8.5-10.1); Creatinine Clr Calc Pharmacy 78.1 ml/min; Est GFR (Non-African American) 66.5 ml/min; Globulin 2.9 gm/dl (2.5-4.0); Magnesium 1.9 mg/dl (1.7-2.4); Potassium 3.8 mmol/L (3.5-5.1); Total Protein 7.3 gm/dl (6.0-8.3)
[2022-10-12] MEDS ORDERED: ACETAMINOPHEN 1,000 MG/100 ML VIAL IV STA (22:31)
[2022-10-12] MEDS ORDERED: ALBUT/IPRATROP 3MG/0.5MG NEB 3 ML VIAL NEB STA (22:31)
--- NOTE | 2022-10-12 22:33 | Emergency Department Note ---
History of Present Illness General Chief complaint: Fever Stated complaint: FEVER, FLU/COVID LIKE SYMPTOMS Time Seen by Provider: 10/12/22 21:31 Source: patient Mode of arrival: EMS Limitations: no limitations History of Present Illness Provider complaint: Fever, body aches, cough Maximum Pain Intensity: 7 This is a 72-year-old male presents emergency department due to worsening flulike symptoms over the last 3 days. Patient states he has fevers, chills, cough, headaches, nausea, nasal congestion, rhinorrhea, sore throat. He states he did not vomit but did have some mild diarrhea. He states he has had a decreased appetite. Patient was seen in his PCPs office and nasal swab was sen t. He did not know any results. Patient states he is a former smoker but does not use any home oxygen or breathing treatments. He states no diagnosis of asthma or COPD. He states cough is productive of a greenish sputum. Home Medications Medication Instructions Recorded Confirmed Type allopurinol 300 mg tablet 300 mg PO DAILY #90 tabs 02/23/22 10/12/22 Rx atorvastatin 40 mg tablet 40 mg PO QPM #90 tabs 02/23/22 10/12/22 Rx clopidogrel 75 mg tablet 75 mg PO DAILY #90 tabs 02/23/22 10/12/22 Rx acetaminophen 650 mg 1,300 mg PO Q12H PRN Pain 10/12/22 10/12/22 History tablet,extended release (Tylenol Arthritis Pain) colchicine 0.6 mg tablet 0.6 mg PO DAILY PRN GOUT FLARE UP 10/12/22 10/12/22 History Allergies Allergy/AdvReac Type Severity Reaction Status Date / Time No Known Allergies Allergy Verified 10/12/22 21:52 Past Med/Surg History Medical History ACS (acute coronary syndrome) Benign essential hypertension CAD (coronary artery disease) Chronic GERD COVID Generalized osteoarthritis of multiple sites Gout Hyperlipidemia NSTEMI (non-ST elevated myocardial infarction) (10/04/14) Opiate dependence, continuous Unstable angina Surgical History Stented coronary artery (2013) STEMI 2 HERMINIA Cx Family History Brother Diabetes Father Heart disease Myocardial infarction Brother Heart disease Myocardial infarction 2 brothers Denies family history of Ovarian cancer Prostate cancer Breast cancer Lung cancer Colorectal cancer Hypertension Stroke Social History Smoking Status: Never smoker Tobacco Type: Cigarettes Age Started Using Tobacco: 22; Age Quit Using Tobacco: 64; Second Hand Exposure: No; Do You Dip or Chew Tobacco: No; Hx Alcohol Use: Yes Alcohol type: beer Hx Substance Use: No Preferred Language: Lithuanian Communication Ability: Effective 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 Required: No Beliefs That Will Affect Care: None marital status: / Current Living Situation: Alone Feels Safe at Home: Yes Safety Concerns: Feels Safe At This Time Childhood Exposure to Second-Hand Smoke: Yes Seatbelt Use: sometimes Sunscreen Use: No Assistive Devices: Denture - Upper, Denture - Lower and Glasses Review of Systems A total of 10 systems reviewed and were otherwise negative All systems reviewed & are unremarkable except as noted in HPI & below Physical Exam Vital Signs Vital Signs - 24 hr 10/12/22 21:22 10/12/22 22:54 10/12/22 22:54 Temperature 39 C H Temperature Source Temporal Artery Scan Pulse Rate 115 H 107 H Pulse Rate [Bilateral] 72 Pulse Rhythm [Bilateral] Regular Pulse Strength [Bilateral] Normal Respiratory Rate 20 16 Respiratory Effort / Characteristics Non-Labored Spontaneous Respiratory Depth Normal Respiratory Pattern Regular Blood Pressure 142/75 H 70/40 L Blood Pressure [Right Arm] 70/40 L Blood Pressure Mean 97 50 Blood Pressure Mean [Right Arm] 50 Blood Pressure Position [Right Arm] Lying Pulse Oximetry 93 96 92 Oxygen Delivery Method Room Air Room Air Room Air Sepsis Recent Fever Within 48 Hours Yes Sepsis New/Unexplained Change in Mental Status No Sepsis Action Taken by Nursing No Action Required 10/12/22 22:56 10/12/22 22:58 10/12/22 23:01 Temperature Temperature Source Pulse Rate 107 H 108 H 104 H Pulse Rate [Bilateral] Pulse Rhythm [Bilateral] Pulse Strength [Bilateral] Respiratory Rate 22 Respiratory Effort / Characteristics Respiratory Depth Respiratory Pattern Blood Pressure 59/46 L 107/76 116/73 Blood Pressure [Right Arm] Blood Pressure Mean 50 86 87 Blood Pressure Mean [Right Arm] Blood Pressure Position [Right Arm] Pulse Oximetry 94 97 98 Oxygen Delivery Method Room Air Room Air Room Air Sepsis Recent Fever Within 48 Hours Sepsis New/Unexplained Change in Mental Status Sepsis Action Taken by Nursing 10/12/22 23:30 10/13/22 00:00 10/13/22 00:30 Temperature Temperature Source Pulse Rate 99 H 100 H 97 H Pulse Rate [Bilateral] Pulse Rhythm [Bilateral] Pulse Strength [Bilateral] Respiratory Rate 30 H 27 H 29 H Respiratory Effort / Characteristics Respiratory Depth Respiratory Pattern Blood Pressure 116/62 124/65 133/71 Blood Pressure [Right Arm] Blood Pressure Mean 80 84 91 Blood Pressure Mean [Right Arm] Blood Pressure Position [Right Arm] Pulse Oximetry 93 92 95 Oxygen Delivery Method Room Air Room Air Room Air Sepsis Recent Fever Within 48 Hours Sepsis New/Unexplained Change in Mental Status Sepsis Action Taken by Nursing 10/13/22 00:53 10/13/22 01:00 Temperature 37.1 C Temperature Source Oral Pulse Rate 98 H Pulse Rate [Bilateral] Pulse Rhythm [Bilateral] Pulse Strength [Bilateral] Respiratory Rate 27 H Respiratory Effort / Characteristics Respiratory Depth Respiratory Pattern Blood Pressure 137/78 Blood Pressure [Right Arm] Blood Pressure Mean 97 Blood Pressure Mean [Right Arm] Blood Pressure Position [Right Arm] Pulse Oximetry 98 Oxygen Delivery Method Room Air Sepsis Recent Fever Within 48 Hours Sepsis New/Unexplained Change in Mental Status Sepsis Action Taken by Nursing GENERAL: alert, unwell appearing, well nourished, no distress, non-toxic EYE EXAM: normal conjunctiva, PERRL and EOM's grossly intact OROPHARYNX: no exudate, no erythema, lips, buccal mucosa, and tongue normal and mucous membranes are moist NECK: supple, no nuchal rigidity, no adenopathy, non-tender LUNGS: Decreased to auscultation. Normal chest wall mechanics, no w/r/r HEART: no murmurs, S1 normal and S2 normal ABDOMEN: abdomen soft, non-tender, normo-active bowel sounds, no masses, no rebound or guarding. BACK: Back is symmetrical on inspection and there is no deformity, no midline tenderness, no CVA tenderness. SKIN: no rashes and no bruising UPPER EXTREMITIES: upper extremities are grossly normal. FROM, nml pulses b/l. LOWER EXTREMITIES: No pitting edema. FROM, nml pulses b/l. NEURO EXAM: Normal sensorium, cranial nerves II-XII grossly intact, normal speech, no gross weakness of arms, no gross weakness of legs. Gross sensation intact. Course Course 2300: I was called to the room urgently by nursing staff as patient's blood pressure had dropped. When I walked in staff described me that patient had begun vomiting and his mask and having trouble breathing, and a recheck of his pressure was 70/50. Mask was removed patient was given an emesis bag and had additional subsequent vomiting. IV fluids were open wide and blood pressure did subsequently improve. Administered Medications Sodium Chloride (Nss 1000ml) 1,000 mls @ 80 mls/hr IV .[id number] IZABEL Stop: 10/13/22 14:59 Last Admin: 10/13/22 02:52 Dose: 80 mls/hr Documented By: [id number] Discontinued Medications Albuterol (Albut/Ipratrop 3mg/0.5mg Neb 3 Ml Vial) 3 ml NEB NOW STA; Protocol Stop: 10/12/22 22:32 Last Admin: 10/12/22 22:44 Dose: 3 ml Documented By: DP Albuterol (Albut/Ipratrop 3mg/0.5mg Neb 3 Ml Vial) 3 ml NEB NOW STA; Protocol Stop: 10/13/22 00:36 Last Admin: 10/13/22 01:25 Dose: 3 ml Documented By: SOHAIL Sodium Chloride (Nss 1000ml) 1,000 mls @ 125 mls/hr IV .Q8H [facility] Stop: 11/11/22 21:59 Last Infusion: 10/13/22 02:51 Dose: 0 mls/hr Documented By: [id number] Admin: 10/12/22 22:44 Dose: 125 mls/hr Documented By: SOHAIL Acetaminophen (Ofirmev) 1,000 mg in 100 mls @ 400 mls/hr IV NOW STA Stop: 10/12/22 22:45 Last Infusion: 10/12/22 22:59 Dose: 0 mls/hr Documented By: Admin: 10/12/22 22:44 Dose: 400 mls/hr Documented By: DP Piperacillin Sod/Tazobactam Sod (Zosyn) 4.5 gm in 120 mls @ 240 mls/hr IV NOW ONE Stop: 10/12/22 23:30 Last Infusion: 10/12/22 23:40 Dose: 0 mls/hr Documented By: Admin: 10/12/22 23:10 Dose: 240 mls/hr Documented By: ASHLEY Sodium Chloride (Nss) 500 mls @ 999 mls/hr IV .Q31M ONE Stop: 10/12/22 23:31 Last Infusion: 10/12/22 23:43 Dose: 0 mls/hr Documented By: Admin: 10/12/22 23:12 Dose: 999 mls/hr Documented By: ASHLEY Medical Decision Making Differential Diagnosis Viral syndrome, strep pharyngitis, tonsillitis, mononucleosis, retropharyngeal abscess, peritonsillar abscess, otitis media, sinusitis, bronchitis, pneumonia, as well as other pathologies. Medical Records Attestation: I reviewed the patient's medical records. Home Medications Current Medication List: was personally reviewed by me Laboratory Data Attestation: I reviewed the patient's lab results. Result diagrams: 10/12/22 21:49 10/12/22 21:49 Lab Results 10/12/22 10/12/22 10/12/22 Range/Units 21:49 21:49 21:49 WBC 5.94 (4.8-10.8) K/ul RBC 4.69 (4.63-6.08) M/uL Hgb 14.3 (14.0-18.0) g/dl Hct 41.4 (40.1-51.0) % MCV 88.3 (80.0-100.0) fL MCH 30.5 (25.0-34.0) pg MCHC 34.5 (32.0-36.0) g/dL RDW Std Deviation 44.3 (36.4-46.3) fL RDW Coeff of Kiersten 13.7 (11.5-14.5) % Plt Count 193 (130-400) K/uL MPV 9.4 (9.4-12.4) fL Immature Gran % (Auto) 0.2 % Neut % (Auto) 80.2 % Lymph % (Auto) 10.1 % Gonzales % (Auto) 9.1 % Eos % (Auto) 0.2 % Baso % (Auto) 0.2 % Neut # (Auto) 4.77 (1.4-6.5) K/uL Lymph # (Auto) 0.60 L (1.2-3.4) K/uL Gonzales # (Auto) 0.54 (0.24-0.82) K/uL Eos # (Auto) 0.01 (0-0.50) K/uL Baso # (Auto) 0.01 (0-0.2) K/uL Immature Gran # (Auto) 0.01 (0.00-0.02) K/uL Sodium 134 L (136-145) mmol/L Potassium 3.8 (3.5-5.1) mmol/L Chloride 97 L (98-107) mmol/L Carbon Dioxide 30 (21-32) mmol/L Anion Gap 7 (3-11) BUN 17 (6-23) mg/dl Creatinine 1.11 (0.6-1.4) mg/dl Est Cr Clr Drug Dosing 78.1 ml/min Est GFR ( Amer) 77.0 ml/min Est GFR (Non-Af Amer) 66.5 ml/min BUN/Creatinine Ratio 15.3 (10-20) Glucose 96 (70-99(Fasting)) mg/dl Lactate (0.4-2.0) mmol/L Calcium 8.9 (8.5-10.1) mg/dl Magnesium 1.9 (1.7-2.4) mg/dl Total Bilirubin 0.4 (0.2-1.0) mg/dl AST 26 (13-39) U/L ALT 21 (7-52) U/L Alkaline Phosphatase 80 (34-104) U/L Troponin I High Sens 17.9 (0-20) pg/ml Total Protein 7.3 (6.0-8.3) gm/dl Albumin 4.4 (3.4-5.0) gm/dl Globulin 2.9 (2.5-4.0) gm/dl Albumin/Globulin Ratio 1.5 (0.9-2) Procalcitonin 0.05 (0-0.5) ng/ml Nasal Influ A H1 2009 PCR Adenovirus (PCR) B. pertussis DNA (PCR) B.parapertussis DNA PCR C. pneumoniae DNA (PCR) Coronavirus OC43 (PCR) Coronavirus HKU1 (PCR) Coronavirus 229E (PCR) SARS-CoV-2 (PCR) Coronavirus NL63 (PCR) Human Metapneumovir PCR Influenza A (H1) PCR Influenza A (H3) PCR Influenza Type A (PCR) Influenza A Untype (PCR) Influenza Type B (PCR) M. pneumoniae (PCR) Parainfluenza 1 (PCR) Parainfluenza 2 (PCR) Parainfluenza 3 (PCR) Parainfluenza 4 (PCR) RSV (PCR) Entero/Rhino (PCR) 10/12/22 10/12/22 Range/Units 21:49 21:54 WBC (4.8-10.8) K/ul RBC (4.63-6.08) M/uL Hgb (14.0-18.0) g/dl Hct (40.1-51.0) % MCV (80.0-100.0) fL MCH (25.0-34.0) pg MCHC (32.0-36.0) g/dL RDW Std Deviation (36.4-46.3) fL RDW Coeff of Kiersten (11.5-14.5) % Plt Count (130-400) K/uL MPV (9.4-12.4) fL Immature Gran % (Auto) % Neut % (Auto) % Lymph % (Auto) % Gonzales % (Auto) % Eos % (Auto) % Baso % (Auto) % Neut # (Auto) (1.4-6.5) K/uL Lymph # (Auto) (1.2-3.4) K/uL Gonzales # (Auto) (0.24-0.82) K/uL Eos # (Auto) (0-0.50) K/uL Baso # (Auto) (0-0.2) K/uL Immature Gran # (Auto) (0.00-0.02) K/uL Sodium (136-145) mmol/L Potassium (3.5-5.1) mmol/L Chloride (98-107) mmol/L Carbon Dioxide (21-32) mmol/L Anion Gap (3-11) BUN (6-23) mg/dl Creatinine (0.6-1.4) mg/dl Est Cr Clr Drug Dosing ml/min Est GFR ( Amer) ml/min Est GFR (Non-Af Amer) ml/min BUN/Creatinine Ratio (10-20) Glucose (70-99(Fasting)) mg/dl Lactate 1.1 (0.4-2.0) mmol/L Calcium (8.5-10.1) mg/dl Magnesium (1.7-2.4) mg/dl Total Bilirubin (0.2-1.0) mg/dl AST (13-39) U/L ALT (7-52) U/L Alkaline Phosphatase (34-104) U/L Troponin I High Sens (0-20) pg/ml Total Protein (6.0-8.3) gm/dl Albumin (3.4-5.0) gm/dl Globulin (2.5-4.0) gm/dl Albumin/Globulin Ratio (0.9-2) Procalcitonin (0-0.5) ng/ml Nasal Influ A H1 2008 PCR Cancelled Adenovirus (PCR) Cancelled B. pertussis DNA (PCR) Cancelled B.parapertussis DNA PCR Cancelled C. pneumoniae DNA (PCR) Cancelled Coronavirus OC43 (PCR) Cancelled Coronavirus HKU1 (PCR) Cancelled Coronavirus 229E (PCR) Cancelled SARS-CoV-2 (PCR) Cancelled Coronavirus NL63 (PCR) Cancelled Human Metapneumovir PCR Cancelled Influenza A (H1) PCR Cancelled Influenza A (H3) PCR Cancelled Influenza Type A (PCR) Cancelled Influenza A Untype (PCR) Cancelled Influenza Type B (PCR) Cancelled M. pneumoniae (PCR) Cancelled Parainfluenza 1 (PCR) Cancelled Parainfluenza 2 (PCR) Cancelled Parainfluenza 3 (PCR) Cancelled Parainfluenza 4 (PCR) Cancelled RSV (PCR) Cancelled Entero/Rhino (PCR) Cancelled Imaging Data My Impression: X-ray: I interpreted the following studies. Chest: A single view study of the chest was reviewed and was negative for cardiomegaly, effusion, pulmonary edema, or wide mediastinum. Appearance of evolving infiltrate in the right lower lobe consistent with aspiration. Radiologist's Impression: Chest X-Ray 10/12/22 21:46 SINGLE VIEW CHEST CLINICAL HISTORY: Fever. Upper respiratory tract infection. FINDINGS: 2 AP, portable, upright chest radiographs are compared to study dated 08/01/2022. Correlation is made with chest CT dated 10/26/2021. The cardiomediastinal silhouette is top normal for projection noting atherosclerotic calcification of the thoracic aorta. Mild emphysema and chronic interstitial thickening similar to previous. Scarring/atelectasis is noted at the lung bases. No airspace consolidation or large pleural effusion is identified. No pneumothorax is seen. The skeletal structures are osteopenic. The bony thorax is grossly intact. IMPRESSION: Emphysematous change with no acute cardiopulmonary abnormality identified. ACT 112: Negative or not required by law. Electronically signed by: Steven Madden M.D. 10/12/2022 10:23 PM ECG Data Attestation: I personally reviewed and interpreted this ECG as follows: Indication: + SOB/dyspnea Rate (beats per minute): 108 Rhythm: + sinus tachycardia ECG Intervals/blocks: + Normal QRS and + Normal QT ECG Herod: + Normal ECG ST segments: + Nonspecific ST abnormalities MDM Narrative An order was placed for continuous cardiac monitoring. The monitor shows a rate of _105_ with _sinus tachycardia__ rhythm. This is a 72-year-old male presents emerged part with multiple symptoms and concern for viral/flulike illness. Patient has had outpatient swab which was able to eventually be accessed after labs were drawn and sent which was positive for influenza A. Labs, cultures obtained, EKG and chest x-ray performed, patient started on telemetry and IV fluids started. Patient was given Tylenol for fever and DuoNeb treatment ordered. I was called urgently to the room following this as patient had an episode of hypotension and then promptly sat up and vomited and given the episode of emesis noted there was high concern for accompanying aspiration. He did temporarily have a drop in his oxygenation however this improved with application of nasal cannula and he was eventually able to be weaned off. Patient's blood pressure did quickly improve with a small fluid bolus and he was then transition to maintenance fluids again. A repeat chest x-ray was performed which did show evidence of evolving aspiration on the right lower lobe. Patient given IV Zosyn as a precaution. An additional nebulizer treatment was added due to his increased work of breathing. I suspect given history of tobacco abuse patient does have underlying COPD although he denies any formal diagnosis of asthma/COPD. Patient remained hemodynamically stable in the emergency room. Case discussed with on-call hospitalist for additional evaluation and management. Impression & Plan Fever, Fatigue, Influenza A, Aspiration into airway, Hypotensive episode Discharge Plan Visit Data Chief Complaint: Fever Stated Complaint: FEVER, FLU/COVID LIKE SYMPTOMS ED Provider: Misty Braun Discharge Problem: Fever, Fatigue, Influenza A, Aspiration into airway, Hypotensive episode Patient Disposition: Admitted As Inpatient Discharge Instructions Interventions: ED Discharge Assessment Last Done: 10/13/22 02:02
[2022-10-12 22:35] LABS: Troponin I High Sensitivity 17.9 pg/ml (0-20)
[2022-10-12] MEDS ORDERED: PIPERACILLIN/TAZOBACTAM 4.5 GM/120 ML BAG IV ONE (23:01)
[2022-10-12] MEDS ORDERED: SODIUM CHLORIDE 0.9% 500 ML IV ONE (23:01)
[2022-10-13] MEDS ORDERED: ALBUT/IPRATROP 3MG/0.5MG NEB 3 ML VIAL NEB STA (00:35)
--- NOTE | 2022-10-13 01:16 | History & Physical Report ---
Date of Service October 13, 2022 Assessment & Plan (1) Influenza A: Plan: Morgan Castañeda is a 72-year-old male with past medical history of CAD with stent in 2013, past smoker (quit in 2013), gout who presented due to flulike symptoms. Influenza A positive. Influenza A - Currently on day 3 of symptoms - However, with history of past smoking and emphysematous changes on CXR, concerning for undiagnosed COPD - As such, will consider higher risk and start on Tamiflu 75mg BID despite being >48 hours since symptom onset - Continue NSS at 80cc/h due to decreased PO intake -- encourage PO, monitor closely due to h/o HFpEF - Antiemetics PRN, Tylenol PRN for pain/fever - Defer steroids as patient not wheezing on exam and not hypoxic -- no signs of COPD exacerbation - Admit for observation Aspiration pneumonitis - Aspiration event after emesis in ER - Repeat CXR with potential developing pneumonitis in RLL -- official read pending - Received empiric Zosyn dose - Will defer further antibiotics at this time -- consider if clinically not improving or worsening despite above CAD with stent/HFpEF/HLD - Continue home clopidogrel, atorvastatin - Echo in Jul 2020 showing EF 50-55% with moderate size area of severe inferobasal hypokinesis - Stable from 2013 - Monitor fluid status Gout - No current flare - Continue home allopurinol - Colchicine PRN if flare DVT ppx: Lovenox SQ FEN/GI: HH/DM2, LR at 80cc/h until tolerating PO better Dispo: Med tele for observation CODE STATUS: Full (2) CAD (coronary artery disease): (3) Stented coronary artery: (4) Hyperlipidemia: (5) (HFpEF) heart failure with preserved ejection fraction: (6) Aggressive ex-smoker: History of Present Illness Primary Care Provider: Zay Dumont MD oMrgan Castañeda is a 72-year-old male with past medical history of CAD with stent in 2013, past smoker (quit in 2013), gout who presented due to flulike symptoms. He is on day 3 of symptoms.these consist mainly of sore throat, myalgias, arthralgias, fever, chills, cough, headache, congestion. Also reports some looser bowel movements, but no more than 3/day. He saw his PCP today and had a nasal swab done, however he was told he would not have the results until tomorrow and advised to present to the emergency room if he felt worse at home. He decided to come in due to developing a fever up to 104 F. Patient is a former smoker of many years and quit in 2013 after having an IA with resulting stent. He denies any diagnosis of COPD in the past but has never had PFTs. In ED, patient presented with stable vital signs and no hypoxia. Initial CXR showed findings c/w emphysematous change but no acute cardiopulmonary abnormalities. However, some time after patient developed nausea and had an episode of emesis resulting in aspiration while ED provider present. During this event the patient had BP down to 50s/40s, felt faint, developed SOB, and transient hypoxia. He was administer NSS 1L bolus and started on supplemental O2 until he was able to be weaned off back to room air. REINA improved to 130s/70s as well. CXR was repeated about 1.5 hours after initial and does show some RLL opacification concerning for developing aspiration pneumonitis -- official read pending. He was administered an empiric dose of Zosyn in ED for aspiration pneumonia coverage. Testing did result positive for Influenza A -- negative for COVID, RSV. Rest of lab work without any significant abnormalities, including normal white count, negative procal. Currently reports feeling much better than when he initially came in. Denies CP, palp, abd pain, weakness, numbness, neuro deficits, rashes. VSS and saturating adequately on room air. Allergies Allergy/AdvReac Type Severity Reaction Status Date / Time No Known Allergies Allergy Verified 10/12/22 21:52 Home Medications Medication Instructions Recorded Confirmed Type allopurinol 300 mg tablet 300 mg PO DAILY #90 tabs 02/23/22 10/12/22 Rx atorvastatin 40 mg tablet 40 mg PO QPM #90 tabs 02/23/22 10/12/22 Rx clopidogrel 75 mg tablet 75 mg PO DAILY #90 tabs 02/23/22 10/12/22 Rx acetaminophen 650 mg 1,300 mg PO Q12H PRN Pain 10/12/22 10/12/22 History tablet,extended release (Tylenol Arthritis Pain) colchicine 0.6 mg tablet 0.6 mg PO DAILY PRN GOUT FLARE UP 10/12/22 10/12/22 History Past Med/Surg History Medical History ACS (acute coronary syndrome) Benign essential hypertension CAD (coronary artery disease) Chronic GERD COVID Generalized osteoarthritis of multiple sites Gout Hyperlipidemia NSTEMI (non-ST elevated myocardial infarction) (10/04/14) Opiate dependence, continuous Unstable angina Surgical History Stented coronary artery (2013) STEMI 2 HERMINIA Cx Family History Brother Diabetes Father Heart disease Myocardial infarction Brother Heart disease Myocardial infarction 2 brothers Denies family history of Ovarian cancer Prostate cancer Breast cancer Lung cancer Colorectal cancer Hypertension Stroke Social History Smoking Status: Never smoker Tobacco Type: Cigarettes Age Started Using Tobacco: 22; Age Quit Using Tobacco: 64; Second Hand Exposure: No; Do You Dip or Chew Tobacco: No; Hx Alcohol Use: Yes Alcohol type: beer Hx Substance Use: No Preferred Language: Russian Communication Ability: Effective Striper Machine Required: No Beliefs That Will Affect Care: None marital status: / Current Living Situation: Alone Feels Safe at Home: Yes Safety Concerns: Feels Safe At This Time Childhood Exposure to Second-Hand Smoke: Yes Seatbelt Use: sometimes Sunscreen Use: No Assistive Devices: Denture - Upper, Denture - Lower and Glasses Review of Systems Review of Systems: per HPI Physical Exam Physical Exam: GENERAL: A&Ox3. NAD. HEENT: PERRL, EOMI. Moist mucous membranes. NECK: No JVD. No lymphadenopathy. CHEST/LUNGS: CTAB A/P. No crackles, wheezes, rales, rhonchi. HEART: RRR. No m/g/r. No carotid bruits. ABDOMEN: NT/ND, soft. BS+ x4 EXTREMITIES: No cyanosis, no clubbing, no edema SKIN: Warm and dry. No rashes or lesions. PSYCHIATRIC: Euthymic affect, no SI, no pressured speech, no hallucinations NEUROLOGIC: No FND. Results & Data Results & Data ([facility]) Vital Signs (Past 12 Hours) Vital Signs Temp Pulse Pulse Resp BP BP Pulse Ox 10/13/22 00:53 37.1 C 10/13/22 00:30 97 H 29 H 133/71 95 10/13/22 00:00 100 H 27 H 124/65 92 10/12/22 23:30 99 H 30 H 116/62 93 10/12/22 23:01 104 H 22 116/73 98 10/12/22 22:58 108 H 107/76 97 10/12/22 22:56 107 H 59/46 L 94 10/12/22 22:54 107 H 70/40 L 92 10/12/22 22:54 72 16 70/40 L 96 10/12/22 21:22 39 C H 115 H 20 142/75 H 93 O2 Del Method 10/13/22 00:53 10/13/22 00:30 Room Air 10/13/22 00:00 Room Air 10/12/22 23:30 Room Air 10/12/22 23:01 Room Air 10/12/22 22:58 Room Air 10/12/22 22:56 Room Air 10/12/22 22:54 Room Air 10/12/22 22:54 Room Air 10/12/22 21:22 Room Air Supervising Physician Co-Signing Physician Notes Patient seen and examined, chart reviewed, case discussed with George Jenkins and I agree with the assessment and plan as above except as otherwise noted Labs and images reviewed Morgan is a 72-year-old male presents to the emergency department with flulike symptoms for 3 days. While in the ER patient had an episode of hypotension after vomiting and was wearing an oxygen mask at the time, after mass removed patient did have subsequent vomiting but with coarse/wheezy breath sounds concerning for aspiration. Patient's blood pressure subsequently improved. Patient was empirically covered with Zosyn for observed aspiration pneumonia. He was gradually weaned to room air, but given episode of hypotension hypoxia and tachypnea patient was recommended for observation as inpatient. Pt seen at bedside, RR is ~16-18, BP wnl, HR 90s. Lungs are without rales/rhonchi and no wheezes at bedside. Pt is nontoxic appearing. Agree with tx for influenza as noted above. Suspect pt had an aspiration event, will treat as pneumonitis. Defer additional abx at this time, follow clinically for signs of developing asp PNA and can re-add abx at that time if clinically indicated. Defer steroids as pt is not wheezing, parker snot appear to have a COPD exacerbation at time of assessment. Agree with mngmt above. Resident Activity Tracking Resident Involvement: Resident Care Provided Care Provided: Adult Hospital Medicine
[2022-10-13] MEDS ORDERED: ACETAMINOPHEN 325 MG TAB PO PRN (02:30)
[2022-10-13] MEDS ORDERED: ONDANSETRON INJ 2 MG/ML 2 ML VIAL IV PRN (02:30)
[2022-10-13] MEDS ORDERED: POLYETHYLENE (MIRALAX) 17 GM PACK PO PRN (02:30)
[2022-10-13] MEDS: SODIUM CHLORIDE 0.9% 1000ML 1,000 ML IV SCH ×2 (02:52→13:52)
[2022-10-13] MEDS: OSELTAMIVIR PHOSPHATE 75 MG CAP PO SCH ×2 (05:38→07:31)
[2022-10-13] MEDS ORDERED: ENOXAPARIN INJ 40 MG/0.4 ML SYR SQ SCH (06:00)
[2022-10-13] MEDS ORDERED: CALCIUM CARBONATE 500 MG CHEWABLE TAB PO ONE (07:29)
[2022-10-13] MEDS ORDERED: allopurinoL 300 MG TAB PO SCH (09:00)
[2022-10-13] MEDS ORDERED: CLOPIDOGREL BISULFATE 75 MG TAB PO SCH (09:00)
--- NOTE | 2022-10-13 09:03 | XRay Report ---
XR chest 1V portable HISTORY: Vomiting. aspiration COMPARISON: Chest 10/12/2022. FINDINGS: No pneumothorax. No pleural effusions. The cardiac silhouette remains mildly enlarged. Ther e is mild interstitial thickening at the lung bases, unchanged. This may be chronic or due to vascula r crowding. Otherwise, no new focal lung consolidations to suggest a pneumonia. No evidence for pulmo nary edema. IMPRESSION: No significant change compared to the prior study. No acute process. ACT 112: Negative or not required by law. Electronically signed by: Shawn More M.D. 10/13/2022 9:02 AM
--- NOTE | 2022-10-13 09:19 | Hospitalist Progress Note ---
Date of Service October 13, 2022 Assessment & Plan (1) Influenza A: Plan: 72yo male with PMH of CAD (s/p stenting, 2013), HFpEF, extensive smoking history (quit in 2013), and gout who presented to [facility] on 10/12 with flu-like symptoms, then found to be positive for influenza A. Influenza A Currently on day 3 of symptoms However, with history of past smoking and emphysematous changes on CXR, concerning for undiagnosed COPD Given high risk of progression to severe illness, tamiflu 75mg bid was started on admission, despite being >48 hours since symptom onset NSS @ 80mL/hr (x2 bags ordered) due to decreased PO intake - encourage PO, monitor closely due to history of HFpEF Antiemetics prn, APAP prn for pain/fever Low threshold to start steroids, though at this time patient's symptoms don't seem to represent a COPD exacerbation APAP 1000mg q8h scheduled for fever, consider spot doses of toradol if fever persists Aspiration pneumonitis Aspiration event after emesis in ER Repeat CXR: no acute process, no significant change from prior Received empiric zosyn dose in ED Low suspicion for bacterial process - procalcitonin negative - will hold off on further antibiotics at this time Incentive spirometry HFpEF Last echo (07/2020): EF 50-55% with severe inferobasal hypokinesis No overt vascular congestion on CXR Caution with IVF (currently NSS @ 80mL/hr - x2 bags ordered) Nausea, vomiting Patient had one episode of emesis in the AM of 10/13; possibly related to ongoing viral illness Resolved with zofran CAD, HLD: continue home clopidogrel, atorvastatin Gout: continue home allopurinol FEN: heart-healthy, DM2 diet, NSS @ 80mL/hr (x2 bags ordered) Code status: full code DVT ppx: lovenox Isolation: airborne PT/OT: ordered Dispo: med/telemetry (2) CAD (coronary artery disease): (3) Stented coronary artery: (4) Hyperlipidemia: (5) (HFpEF) heart failure with preserved ejection fraction: (6) Aggressive ex-smoker: Admission and Anticipated Discharge Date Admission Date: October 13, 2022 Supervising Physician Co-Signing Physician Notes I personally examined the patient and verified all treadwell points of history and exam, discussed case, and agree with decision making with Dr Felton. Feeling better and would like to go home. Discussed weaning oxygenfortunately he was able to wean to room air and stay above 90%. Notes that he felt like his fever broke and he is feeling much better. Vitals noted, in general he is awake and alert pleasant no distress. HEENT normocephalic atraumatic mucous membranes moist. Breathing unlabored no accessory muscle use good effort. Skin shows no rashes no pallor or icterus. Neuro without focal deficits. Influenza, questionable aspiration eventimproving nicely from both. Does appear to be safe/stable for home given that he is able to breathe okay on room air, he is not septic, and he is otherwise stable. Discharge home, close outpatient follow-up. Subjective Patient seen and evaluated at bedside this morning. Patient feels "like crap" today although he notes his breathing is a bit more comfortable then when he arrived. Reports persistent generalized muscle aches, headache, and mild congestion. Denies CP, abdominal pain, and diarrhea. Patient did have brief episode of nausea with emesis (x1) this morning around 08:00; RN administered nausea. Physical Exam Physical Exam: Constitutional: tired-appearing, NAD CV: heart sounds distant Resp: lung sounds distant Neuro: alert, oriented, no focal neurologic deficit appreciated Results & Data Results & Data ([facility]) Vital Signs (Past 12 Hours) Vital Signs Temp Pulse Pulse Pulse Resp BP BP 10/13/22 08:04 37.8 C H 113 H 16 10/13/22 07:55 10/13/22 07:25 110 H 10/13/22 02:23 99 H 10/13/22 02:55 143/67 H 10/13/22 02:44 10/13/22 02:30 37.0 C 101 H 18 171/78 H 10/13/22 01:00 98 H 27 H 137/78 10/13/22 00:53 37.1 C 10/13/22 00:30 97 H 29 H 133/71 10/13/22 00:00 100 H 27 H 124/65 10/12/22 23:30 99 H 30 H 116/62 10/12/22 23:01 104 H 22 116/73 10/12/22 22:58 108 H 107/76 10/12/22 22:56 107 H 59/46 L 10/12/22 22:54 107 H 70/40 L 10/12/22 22:54 72 16 70/40 L 10/12/22 21:22 39 C H 115 H 20 142/75 H Pulse Ox O2 Del Method O2 Flow Rate 10/13/22 08:04 88 L Room Air 10/13/22 07:55 Nasal Cannula 2 10/13/22 07:25 10/13/22 02:23 10/13/22 02:55 10/13/22 02:44 Room Air 10/13/22 02:30 94 Room Air 10/13/22 01:00 98 Room Air 10/13/22 00:53 10/13/22 00:30 95 Room Air 10/13/22 00:00 92 Room Air 10/12/22 23:30 93 Room Air 10/12/22 23:01 98 Room Air 10/12/22 22:58 97 Room Air 10/12/22 22:56 94 Room Air 10/12/22 22:54 92 Room Air 10/12/22 22:54 96 Room Air 10/12/22 21:22 93 Room Air Resident Activity Tracking Resident Involvement: Resident Care Provided Care Provided: Adult Hospital Medicine
[2022-10-13] MEDS ORDERED: KETOROLAC TROMETHAMINE 15 MG/ML VIAL IV ONE (11:00)
[2022-10-13] MEDS ORDERED: ACETAMINOPHEN 500 MG TAB PO SCH (14:00)
--- NOTE | 2022-10-13 16:33 | Discharge Summary ---
Date of Service October 13, 2022 Admission HPI Per Admitting Provider Morgan Castañeda is a 72-year-old male with past medical history of CAD with stent in 2013, past smoker (quit in 2013), gout who presented due to flulike symptoms. He is on day 3 of symptoms.these consist mainly of sore throat, myalgias, arthralgias, fever, chills, cough, headache, congestion. Also reports some looser bowel movements, but no more than 3/day. He saw his PCP today and had a nasal swab done, however he was told he would not have the results until tomorrow and advised to present to the emergency room if he felt worse at home. He decided to come in due to developing a fever up to 104 F. Patient is a former smoker of many years and quit in 2013 after having an CO with resulting stent. He denies any diagnosis of COPD in the past but has never had PFTs. In ED, patient presented with stable vital signs and no hypoxia. Initial CXR showed findings c/w emphysematous change but no acute cardiopulmonary abnormalities. However, some time after patient developed nausea and had an episode of emesis resulting in aspiration while ED provider present. During this event the patient had BP down to 50s/40s, felt faint, developed SOB, and transient hypoxia. He was administer NSS 1L bolus and started on supplemental O2 until he was able to be weaned off back to room air. REINA improved to 130s/70s as well. CXR was repeated about 1.5 hours after initial and does show some RLL opacification concerning for developing aspiration pneumonitis -- official read pending. He was administered an empiric dose of Zosyn in ED for aspiration pneumonia coverage. Testing did result positive for Influenza A -- negative for COVID, RSV. Rest of lab work without any significant abnormalities, including normal white count, negative procal. Currently reports feeling much better than when he initially came in. Denies CP, palp, abd pain, weakness, numbness, neuro deficits, rashes. VSS and saturating adequately on room air. Admission Exam Per Admitting Provider GENERAL: A&Ox3. NAD. HEENT: PERRL, EOMI. Moist mucous membranes. NECK: No JVD. No lymphadenopathy. CHEST/LUNGS: CTAB A/P. No crackles, wheezes, rales, rhonchi. HEART: RRR. No m/g/r. No carotid bruits. ABDOMEN: NT/ND, soft. BS+ x4 EXTREMITIES: No cyanosis, no clubbing, no edema SKIN: Warm and dry. No rashes or lesions. PSYCHIATRIC: Euthymic affect, no SI, no pressured speech, no hallucinations NEUROLOGIC: No FND. Principal Diagnosis Influenza A Discharge Exam Constitutional: well-appearing, NAD CV: heart sounds distant Resp: lung sounds distant, no wheezes/rhonchi/crackles noted, breathing nonlabored Neuro: alert, oriented, no focal neurologic deficit appreciated Discharge Data Allergies Allergy/AdvReac Type Severity Reaction Status Date / Time No Known Allergies Allergy Verified 10/12/22 21:52 Consultations 10/13/22 00:59 ED Decision to Admit Stat Hospital Course (1) Influenza A: Influenza A Patient presented on symptom day three of flu-like symptoms, and tested positive for influenza A on arrival to [facility]. CXR was not suggestive of vascular congestion. Patient was considered likely to have undiagnosed COPD given his extensive smoking history and emphysematous change noted on CXR, and was therefore considered to be at high risk to progression to severe illness. For this reason, tamiflu therapy was initiated despite having been symptomatic for over 48 hours. Fever was treated with acetaminophen. Patient did have an episode of emesis in the ER, which led to concern for aspiration pneumonitis, but CXR was not suggestive of aspiration pneumonitis or pneumonia, and so this was felt to be unlikely. Late on hospital day one, patient insisted on discharge. An informal oxygen requirement was performed, and patient was able to maintain an adequate oxygen saturation (90% or higher) on room air including with exertion/ambulation. Patient was discharged on hospital day one in stable condition. Tamiflu was sent to patients pharmacy to complete a total five-day course. PCP follow-up is recommended. (2) Hyperlipidemia: (3) CAD (coronary artery disease): (4) (HFpEF) heart failure with preserved ejection fraction: Total Time Total Time Spent Total Time Spent (In Minutes): <30 Discharge Plan Discharge Items Patient Disposition: Home - Self-Care Reason For Visit: SOB, MALIASE, FLU + Discharge Diagnosis: Influenza A Activity: Resume your previous activity Non-emergency contact: Primary Care Provider Call non-emergency contact if: you have any medication questions, your symptoms worsen and your temperature is above 101 Follow-up/Referrals: Zay Dumont MD [Primary Care Provider] - 10/20/22 8:00 am Diet: Carb Consistent or DM2 and Heart Healthy Addtl Attending Provider Instructions: You were admitted to the hospital for influenza. You were treated with an antiviral medication in addition to breathing treatments. Your symptoms have been stable since you arrived, and you expressed a desire to return home today. Your oxygen level has stayed within a healthy range, and so we feel it is okay for you to return home as long as you know you should return if you experience any worsening of symptoms. Please read these instructions carefully. A discharge summary will be sent to your primary care physician to ensure continuity of care. Please bring this discharge summary with you to your next office appointment so that your provider can review it at that time. Follow-up appointments: Make a follow-up appointment with your PCP within the next week. It is very important that you follow up with them shortly after discharge from the hospital. Keep all your follow-up appointments as already scheduled. If you cannot make an appointment, notify your provider. Medications: Your medication list has been reviewed and reconciled upon discharge to ensure accuracy and continuity of care. An updated list of all your medications is included with your hospital discharge paperwork. Please review this list closely, and make note of any changes. * We sent a new medication called oseltamivir (Tamiflu) to your pharmacy. Take oseltamivir (75mg) one tablet twice daily for four more days.. If you have any issues filling these prescriptions, please call [phone] and ask to leave a message for Dr. Hema Felton. Take your medications as instructed; do not skip a dose of your medicines. Make sure all of your doctors know every medicine you are taking (including uvkl-[id number] medicines, vitamins, and supplements). Call your primary care provider before taking any new medicines (including [id number]-efpmnzb medicines, vitamins, and supplements), because some of these may interact with your current medications, or may make your symptoms worse. Tell your primary care provider if you cannot afford your medications. CONTACT YOUR PRIMARY CARE PROVIDER if you experience any of the following: Fever, chills, muscle aches Nausea, vomiting, or difficulty keeping fluids down Difficulty following your treatment plan, or difficulty taking medications CALL 911 OR GO TO THE EMERGENCY DEPARTMENT if you experience any of the following: Sudden, severe abdominal pain or nausea/vomiting Severe chest pain, or chest pain that radiates (moves) to your jaw or arm Sudden, severe shortness of breath or difficulty breathing Thank you for allowing us to participate in your care. Pending Studies at Discharge: No Stand-Alone Forms: My [facility] Medications and DC Order Prescriptions: New oseltamivir [Tamiflu] 75 mg Capsule 75 mg PO BID 4 Days Qty: 8 0RF Continued allopurinol 300 mg tablet 300 mg PO DAILY Qty: 90 3RF atorvastatin 40 mg tablet 40 mg PO QPM Qty: 90 3RF Rx Instructions: TAKE 1 TABLET BY MOUTH ONCE DAILY IN THE EVENING clopidogrel 75 mg tablet 75 mg PO DAILY Qty: 90 3RF acetaminophen [Tylenol Arthritis Pain] 650 mg tablet extended release 1,300 mg PO Q12H PRN (Reason: Pain) colchicine 0.6 mg tablet 0.6 mg PO DAILY PRN (Reason: GOUT FLARE UP) Discharge Orders: Discharge Order (Routine); Ordered 10/13/22 Ordered By: Hema Felton Admission Data Admit Date/Time: 10/13/22 01:20 Attending Provider: Raza Thurman Admit Provider: George Jenkins Primary Care Provider: Zay Dumont Other Providers: Ranjith Liu Other Interventions: Discharge Summary Assessment (RN) Last Done: 10/13/22 16:45 Supervising Physician Co-Signing Physician Notes I personally examined the patient and verified all treadwell points of history and exam, discussed case, and agree with decision making with Dr Felton. Feeling better and would like to go home. Discussed weaning oxygenfortunately he was able to wean to room air and stay above 90%. Notes that he felt like his fever broke and he is feeling much better. Vitals noted, in general he is awake and alert pleasant no distress. HEENT normocephalic atraumatic mucous membranes moist. Breathing unlabored no accessory muscle use good effort. Skin shows no rashes no pallor or icterus. Neuro without focal deficits. Influenza, questionable aspiration eventimproving nicely from both. Does appear to be safe/stable for home given that he is able to breathe okay on room air, he is not septic, and he is otherwise stable. Discharge home, close outpatient follow-up. Resident Activity Tracking Resident Involvement: Resident Care Provided Care Provided: Adult Hospital Medicine
--- NOTE | 2022-10-13 18:10 | Billing Data ---
Date of Service October 13, 2022 Coding Level of Care Code 82557 OBS Care - Discharge
[2022-10-13] MEDS ORDERED: ATORVASTATIN 40 MG TAB PO SCH (21:00)
--- NOTE | 2022-10-14 23:36 | Electrocardiogram Report ---
Test Reason : Blood Pressure : / mmHG Vent. Rate : 108 BPM Atrial Rate : 108 BPM P-R Int : 158 ms QRS Dur : 092 ms QT Int : 336 ms P-R-T Axes : 062 050 070 degrees QTc Int : 450 ms Sinus tachycardia Nonspecific ST abnormality Abnormal ECG When compared with ECG of 01-AUG-2022 19:11, Vent. rate has increased BY 39 BPM Confirmed by Gumaro Foley ([id number]) on 10/14/2022 11:36:08 PM Referred By: REFERRED SELF Confirmed By:Gumaro Foley
== END 2022-10-13 17:33 | disposition home or self-care (01) ==
LOC: 2N 21:17 → ED 21:17 → SUATTDRO 10-13 01:20 → 2N 10-13 02:02
DX: Z87.891 Personal history of nicotine dependence; I50.32 Chronic diastolic (congestive) heart failure; M10.9 Gout, unspecified; I25.10 Atherosclerotic heart disease of native coronary artery without angina pectoris; Z79.899 Other long term (current) drug therapy; Z20.822 Contact with and (suspected) exposure to COVID-19; Z95.5 Presence of coronary angioplasty implant and graft; Z79.02 Long term (current) use of antithrombotics/antiplatelets; J10.1 Influenza due to other identified influenza virus with other respiratory manifestations; J06.9 Acute upper respiratory infection, unspecified; E78.5 Hyperlipidemia, unspecified; Z86.16 Personal history of COVID-19